=== PATIENT | male | born 1965 | race Caucasian/White ===

== ENCOUNTER 2019-08-04 14:53 | Outpatient (CLI) | payer OTHER, SELFPAY ==
--- NOTE | ~2019-08-04 | US_ITS ---
EXAMINATION: US carotid duplex BI DATE: 08/04/2019 15:33 INDICATION: Dizziness. Giddiness. TECHNIQUE: Grayscale, color Doppler, and pulsed Doppler images of the cervical carotid arteries were obtained. The degree of vessel stenosis is placed in one of the following categories: normal, <50%, 5 0-69%, >=70% but less than near-occlusion, near-occlusion, or total occlusion. Note that percent sten osis relative to normal distal artery lumen diameter is indirectly measured from velocity measurement s as described by Bernardo, et al. Radiology 2003; 229:340-346. COMPARISON: None. FINDINGS: RIGHT: The right common carotid artery (CCA) peak systolic velocity (PSV) is 101.6 cm/s. The right internal carotid artery (ICA) PSV is 59.9 cm/s. The right ICA end-diastolic velocity (EDV) is 16.8 cm/s. The r ight ICA/CCA PSV ratio is 0.6. Grayscale and color Doppler images yield an estimate of 0% diameter re duction from plaque in the ICA. The external carotid artery (ECA) PSV is 65.1 cm/s. There is antegrad e flow in the right vertebral artery. LEFT: The left CCA PSV is 106.9 cm/s. The left ICA PSV is 55.2 cm/s. The left ICA EDV is 24.5 cm/s. The lef t ICA/CCA PSV ratio is 0.5. The technologist noted that it was difficult to scan the patient due to b delmar habitus. The provided images reveal discontinuous color flow signal, low velocity and filling of the spectral window at the left internal carotid artery, which may be indications of possible high-gr don stenosis. Further evaluation with CT angiography of the carotid arteries is recommended. The ECA PSV is 52.9 cm/s. There is antegrade flow in the left vertebral artery. IMPRESSION: 1. No significant stenosis in the right internal carotid artery. 2. Cannot exclude critical stenosis in the left internal carotid artery; examination is limited in pa rt due to body habitus. Discontinuous color flow signal, low velocities and prominent spectral broade reggie at the left internal carotid artery are of concern for possible high-grade stenosis. CT angiogra phy of the carotid arteries is recommended for further evaluation. Reviewed, dictated and finalized at [facility]. Reviewed, dictated and finalized at location B. O SOUNDING BOARD MATCHER IMPRESSION: 1. No significant stenosis in the right internal carotid artery. 2. Cannot exclude critical stenosis in the left internal carotid artery; examin ation is limited in part due to body habitus. Discontinuous color flow signal, low velocities and prominent spectral broadening at the left internal carotid a rtery are of concern for possible high-grade stenosis. CT angiography of the ca rotid arteries is recommended for further evaluation.
== END 2019-08-04 14:54 | disposition home or self-care (01) ==
LOC: ANHIMG 14:58
PROVIDERS: Visit Provider Physician Assistant
DX: R42 Dizziness and giddiness (principal)
CPT/HCPCS: 93880

== ENCOUNTER → 2019-08-24 14:26 | Outpatient (CLI) | payer OTHER, SELFPAY ==
--- NOTE | ~2019-08-24 | MR_ITS ---
EXAMINATION: MR shoulder LT wo con DATE: 08/24/2019 15:18 INDICATION: Left shoulder tendinitis presenting with pain, weakness and limited range of motion TECHNIQUE: Magnetic resonance imaging (MRI) of the left shoulder was performed without intravenous co ntrast. Sequences included axial PD-weighted FS FSE, coronal oblique PD-weighted FS FSE, coronal obli que T2-weighted FS FSE, sagittal PD-weighted FS FSE, and sagittal T1-weighted SE. COMPARISON: Left shoulder radiographs dated 02/16/2019 FINDINGS: There is poor signal along the cephalad aspect of the shoulder likely related to patient body habitus and coil positioning. Coracoacromial arch: The acromion undersurface is curved in morphology (type II). The coracoacromial ligament is normal. M inimal acromioclavicular osteoarthritis. Rotator cuff: Mild supraspinatus and infraspinatus tendinopathy without discrete tear. The subscapularis and teres minor tendons are normal. There is increase intermediate signal intensity soft tissue replacing the n ormal fat signal at the rotator cuff interval which can be a finding of adhesive capsulitis although there is no evident thickening of the inferior capsule which is a second typical findings of adhesive capsulitis. Normal rotator cuff muscle bulk and signal. Biceps tendon, glenoid labrum and glenohumeral cartilage: Long head of the biceps tendon is normal. Glenoid labrum is normal. Glenohumeral cartilage is normal. Fluid: Small amount of fluid in the biceps tendon sheath which is disproportionate to the physiologic amount of fluid in the glenohumeral joint space consistent with mild bicipital tenosynovitis.. No loose ost eochondral bodies. Small amount of fluid in the subacromial/subdeltoid bursa consistent with mild bur sitis. Bones: Normal marrow signal with no edema, fracture or pathologic marrow replacing process. IMPRESSION: 1. Mild supraspinatus and infraspinatus tendinopathy without discrete tear. 2. Mild bicipital tenosynovitis with normal-appearing tendon. 3. Mild subacromial/subdeltoid bursitis. 4. Increased soft tissue density replacing the normal fat at the rotator cuff interval which can be a finding of adhesive capsulitis which is a clinical diagnosis. There is however no appreciable thicke reggie of the inferior capsule which is a second typical findings of adhesive capsulitis. Alternatively this could represent partial tear of the biceps carrington sling. Correlate with physical exam and clini ted history. Reviewed, dictated and finalized at location A. UREMENT AGENT IMPRESSION: 1. Mild supraspinatus and infraspinatus tendinopathy without discrete tear. 2. Mild bicipital tenosynovitis with normal-appearing tendon. 3. Mild subacromial/subdeltoid bursitis. 4. Increased soft tissue density replacing the normal fat at the rotator cuff i nterval which can be a finding of adhesive capsulitis which is a clinical diagn osis. There is however no appreciable thickening of the inferior capsule which is a second typical findings of adhesive capsulitis. Alternatively this could r epresent partial tear of the biceps carrington sling. Correlate with physical exam and clinical history.
== END ==
PROVIDERS: PCP Family Medicine; Visit Provider Orthopaedic Surgery
DX: M75.82 Other shoulder lesions, left shoulder (principal); M77.9 Enthesopathy, unspecified; M75.22 Bicipital tendinitis, left shoulder; M75.52 Bursitis of left shoulder
CPT/HCPCS: 73221

== ENCOUNTER → 2019-09-04 10:39 | Outpatient (CLI) | payer OTHER, SELFPAY ==
--- NOTE | ~2019-09-04 | CT_ITS ---
EXAMINATION: CTA brain carotid DATE: 09/04/2019 11:39 INDICATION: Dizziness. Carotid artery stenosis. TECHNIQUE: Computed tomographic angiography (CTA) of the head was performed without and with 100 mL O mnipaque-350 intravenous contrast. CTA of the neck was performed with intravenous contrast. Automated exposure control and iterative reconstruction technique were employed. The dose-length product was 1 458.12 mGy-cm. Maximum intensity projection and volume rendered 3D-reconstructions were created by hugh ordonez technologist on a separate workstation. COMPARISON: Head CT 08/26/2013, carotid ultrasound 08/04/2019 FINDINGS: HEAD CTA: There is no intracranial hemorrhage, acute infarction, or abnormal intracranial mass lesion . The ventricles are normal in size. There is mild mucosal thickening in the paranasal sinuses. The m astoid air cells are normal. The orbits are normal. Left vertebral artery is dominant. There is no si gnificant stenosis of basilar artery or the posterior cerebral arteries. There is no significant sten osis of the intracranial internal carotid arteries or anterior or middle cerebral arteries. Anterior communicating artery is normal. The posterior communicating arteries are normal. No aneurysm. NECK CTA: There are no pathologically enlarged lymph nodes. There is no significant stenosis of the v ertebral arteries. There is no visible plaque in the proximal internal carotid arteries. There is 0% stenosis of the proximal right internal carotid artery relative to normal distal artery lumen diamet er (NASCET criteria). There is 0% stenosis of the proximal left internal carotid artery relative to n ormal distal artery lumen diameter. The spine is unremarkable. IMPRESSION: 1. Normal brain. No aneurysm or significant intracranial arterial stenosis. 2. 0% stenosis of the proximal internal carotid arteries relative to normal distal artery lumen diame ters (NASCET criteria). Reviewed, dictated and finalized at location A. OWNED SALES CONSULTANT IMPRESSION: 1. Normal brain. No aneurysm or significant intracranial arterial stenosis. 2. 0% stenosis of the proximal internal carotid arteries relative to normal dis little artery lumen diameters (NASCET criteria).
[2019-09-04 10:56] LABS: Estimated Glomerular Filt Rate > 60
== END ==
PROVIDERS: PCP Physician Assistant; Visit Provider Physician Assistant
DX: I65.29 Occlusion and stenosis of unspecified carotid artery (principal)
CPT/HCPCS: 36415; 70496; 70498; Q9967

== ENCOUNTER 2019-09-10 07:38 | Outpatient (CLI) | payer OTHER, SELFPAY ==
--- NOTE | 2019-09-10 | EST_ITS ---
Patient Info Name: Adam Andino Age: 54 years : 1965 Gender: Male Ht: 70 in Wt: 305 lbs BSA: 2.68 m2 HR: 79 bpm BP: 133 Heart Rhythm: Sinus Rhythm Exam Date: 09/10/2019 9:00 AM Exam Location: [facility] Stress Patient Status: Outpatient Admit Date: 09/10/2019 Staff Ordering Physician: RicardoJanine Attending Provider: RicardoJanine Exercise Technologist: Zelda Blackwell RDCS Nurse: Enid Mar, ANP, ACNP-BC Exam Type: CA stress test treadmill Study Info Indications R07.89 - Other chest pain A treadmill exercise stress test was performed. Summary 1. No chest discomfort with stress test. 2. Decreased exercise tolerance for age. 3. Negative treadmill stress test for ischemia. Protocol: Wes Stress ECG Details Stage: REST Duration (min): 2 min : 21 sec Speed (mph): 0.0 Grade (%): 0 HR (bpm): 79 SBP (mmHg): 133 DBP (mmHg): 83 METS: --- Stage: REST Duration (min): 20 min : 4 sec Speed (mph): 0.0 Grade (%): 0 HR (bpm): 89 SBP (mmHg): 130 DBP (mmHg): 84 METS: --- Stage: STAGE 1 Duration (min): 1 min : 0 sec Speed (mph): 1.7 Grade (%): 10 HR (bpm): 108 SBP (mmHg): 130 DBP (mmHg): 84 METS: --- Stage: STAGE 1 Duration (min): 2 min : 0 sec Speed (mph): 1.7 Grade (%): 10 HR (bpm): 120 SBP (mmHg): 130 DBP (mmHg): 84 METS: --- Stage: STAGE 1 Duration (min): 3 min : 0 sec Speed (mph): 1.7 Grade (%): 10 HR (bpm): 124 SBP (mmHg): 172 DBP (mmHg): 80 METS: --- Stage: STAGE 2 Duration (min): 1 min : 0 sec Speed (mph): 2.5 Grade (%): 12 HR (bpm): 135 SBP (mmHg): 172 DBP (mmHg): 80 METS: --- Stage: STAGE 2 Duration (min): 2 min : 0 sec Speed (mph): 2.5 Grade (%): 12 HR (bpm): 144 SBP (mmHg): 142 DBP (mmHg): 87 METS: --- Stage: STAGE 2 Duration (min): 2 min : 34 sec Speed (mph): 2.5 Grade (%): 12 HR (bpm): 150 SBP (mmHg): 142 DBP (mmHg): 87 METS: --- Stage: RECOVERY Duration (min): 0 min : 25 sec Speed (mph): 0.0 Grade (%): 0 HR (bpm): 150 SBP (mmHg): 142 DBP (mmHg): 87 METS: --- Stage: RECOVERY Duration (min): 1 min : 25 sec Speed (mph): 0.0 Grade (%): 0 HR (bpm): 128 SBP (mmHg): 142 DBP (mmHg): 87 METS: --- Stage: RECOVERY Duration (min): 2 min : 25 sec Speed (mph): 0.0 Grade (%): 0 HR (bpm): 113 SBP (mmHg): 142 DBP (mmHg): 87 METS: --- Stage: RECOVERY Duration (min): 3 min : 25 sec Speed (mph): 0.0 Grade (%): 0 HR (bpm): 109 SBP (mmHg): 161 DBP (mmHg): 60 METS: --- Stage: RECOVERY Duration (min): 4 min : 25 sec Speed (mph): 0.0 Grade (%): 0 HR (bpm): 103 SBP (mmHg): 161 DBP (mmHg): 60 METS: ---
--- NOTE | 2019-09-15 11:08 | WPDHOLTEREM ---
Holter/Event Monitor Holter/Event Monitor Date of procedure: 09/10/19 Procedure Type: 48 hour holter monitor Indications: Chest pain on exertion Conclusion: 1. 48 hour holter monitor on 09/10/19. 2. Underlying rhythm is sinus rhythm. HR range 57-120 bpm; average HR 84 bpm. 3. No premature supraventricular complexes. No supraventricular tachycardia. 4. There are 4 premature ventricular complexes. No ventricular tachycardia. 5. No sinoatrial or atrioventricular blocks. No significant pauses greater than 2 seconds. 6. Patient reports symptoms of dizziness and chest pain which demonstrate sinus rhythm, HR range 82-109 bpm.
== END 2019-09-10 07:39 | disposition home or self-care (01) ==
PROVIDERS: PCP Physician Assistant; Visit Provider Physician Assistant
DX: R07.89 Other chest pain (principal)
CPT/HCPCS: 93017; 93225; 93226

== ENCOUNTER 2019-12-17 09:16 | Outpatient (CLI) | payer OTHER, SELFPAY ==
[2019-12-17 09:50] LABS: Blood Urea Nitrogen 7 mg/dL (9-20); Calcium 9.2 mg/dL (8.4-10.2); Carbon Dioxide 29 mmol/L (22-30); Chloride 98 mmol/L (98-107); Estimated Glomerular Filt Rate > 60; Glucose 111 mg/dL (75-110); Potassium 4.1 mmol/L (3.4-5.0); Sodium 134 mmol/L (137-145)
== END 2019-12-17 09:17 | disposition home or self-care (01) ==
LOC: ANHSURGERY 09:18
PROVIDERS: Anesthesiology; PCP Physician Assistant; Visit Provider Orthopaedic Surgery
DX: Z51.81 Encounter for therapeutic drug level monitoring (principal)
CPT/HCPCS: 36415; 80048

== ENCOUNTER 2019-12-23 00:17 | Outpatient (CLI) | payer OTHER, SELFPAY ==
[2019-12-23 17:34] LABS: SARS-CoV-2 RNA PCR Negative
== END 2019-12-23 00:18 | disposition home or self-care (01) ==
LOC: ANHCOVIDDT 00:18
PROVIDERS: PCP Physician Assistant; Visit Provider Orthopaedic Surgery
DX: Z01.812 Encounter for preprocedural laboratory examination (principal); Z11.59 Encounter for screening for other viral diseases
CPT/HCPCS: 87635; C9803; U0003

== ENCOUNTER 2019-12-25 00:45 | Day surgery (SDC) | payer OTHER, SELFPAY ==
[2019-12-16 09:21] VITALS: BMI 43.7
[2019-12-25] VITALS (7 sets, daily range): BP systolic 114–153; BP diastolic 53–93; PULSE 75–88; RESP 12–20; TEMP 36.9–37.7; O2SAT 94–100
--- NOTE | 2019-12-25 07:38 | WPDANESEPPF ---
Anes - Initial Pre Proc Eval Procedure: Operation Date: 12/25/19 11:00 Proposed Procedures p Left Carpal Tunnel Release, Left Cubital Tunnel Decompression - Keaton Blandon MD Date/Time: 12/25/19 07:38 Surgeon: Keaton Blandon MD Pre Op Diagnosis: left carpal and cubital tunnel syndrome Patient Data Age: 54 Gender: M Height: 1.78 m Weight: 138.35 kg Allergies Allergy/AdvReac Type Severity Reaction Status Date / Time peanut Allergy Unknown Vomiting Verified 12/16/19 09:18 Home Medications Medication Instructions Recorded Confirmed Type carvedilol 12.5 mg tablet 12.5 mg PO Q12H 06/18/19 12/16/19 History fluoxetine 20 mg capsule 20 mg PO DAILY 06/18/19 12/16/19 History lisinopril 20 mg tablet 20 mg PO DAILY 06/30/19 12/16/19 History meloxicam 15 mg tablet 15 mg PO DAILY 06/30/19 12/16/19 History multivitamin 1 cap PO DAILY 06/30/19 12/16/19 History omeprazole 40 mg capsule,delayed 40 mg PO DAILY 06/30/19 12/16/19 History release terazosin 5 mg capsule 5 mg PO DAILY 06/30/19 12/16/19 History trazodone 100 mg tablet 100 mg PO HS 06/30/19 12/16/19 History zolpidem 10 mg tablet 10 mg PO HS 06/30/19 12/16/19 History hydrochlorothiazide 25 mg tablet 25 mg PO DAILY 08/17/19 12/16/19 History Vitamin B-1 1 tablet PO DAILY 12/16/19 12/16/19 History Vitamin D3 1 tablet PO DAILY 12/16/19 12/16/19 History multivitamin 1 tablet PO DAILY 12/16/19 12/16/19 History Patient hx anesthesia problems: none Family hx anesthesia problems: none PMFSH Past Medical History Medical History (Updated 12/25/19 @ 07:39 by Fernando Demarco MD) Anxiety Arthritis Back pain Carpal tunnel syndrome of left wrist Essential hypertension GERD (gastroesophageal reflux disease) Insomnia Left shoulder tendonitis Morbid obesity with BMI of 40.0-44.9, adult Obesity GIRMA (obstructive sleep apnea) Ulnar neuropathy at elbow Surgical History Surgical History History of appendectomy (~2008) Social History Social History Smoking status: Never smoker Alcohol intake: current Anes - Eval Final PreProcedure Day of Procedure 12/25/19 07:38 Patient weight: morbidly obese Heart: regular rate and rhythm Lungs: clear to auscultation and normal air movement Airway: Mallampati scale class II Neurological: alert and oriented Last oral intake: >/= 8 hours ASA classification: III Emergent: no Anesthetic plan: proceed Anesthesia type and monitoring: general LMA and ETT Informed Consent: The patient's anesthetic plan and its attendant risks and benefits were discussed with the patient/family/POA. Questions were solicited and answers provided to the satisfaction of the patient/family/POA.
[2019-12-25] MEDS: LACTATED RINGERS 1,000 ML 30 ML IV CONT ×2 (09:50→13:24)
--- NOTE | 2019-12-25 11:04 | WPDHPUPDATE1 ---
History and Physical Update Update Date/Time: 12/25/19 11:04 History and Physical has been reviewed, including an updated exam of the patient. There are NO changes in the patient's condition. Risks, benefits, and alternatives have been discussed and questions answered. Patient agrees to proceed with procedure.
[2019-12-25] MEDS: ceFAZolin 3 GM/D5W 100 ML 100 ML IVPB (11:09)
[2019-12-25] MEDS: BUPIVACAINE/EPINEPHRINE 0.5% 10 ML VIAL INFILTRATE (11:26)
[2019-12-25] MEDS: KETOROLAC 30 MG/ML VIAL (*BKC) IV PUSH (12:56)
--- NOTE | 2019-12-26 11:01 | PM.PROC ---
Procedure Note - Detailed Date of procedure: 12/25/19 Pre-op diagnosis: left carpal and cubital tunnel syndrome Post-op diagnosis: same Procedure performed: 1. Carpal Tunnel Release 2. Ulnar nerve submuscular transposition at the elbow. Description of procedure: The nerve was inflamed and compressed at the cubital tunnel. After decompression it appeared quite unstable. It tended to move over and on top of the medial epicondyle. The nerve was also under considerable tension with deep flexion. Submuscular transposition was elected. Carpal tunnel release was performed in a routine fashion. Anesthesia: GLMA and MAC Surgeon: Keaton Blandon MD Estimated blood loss (mL): 5 Tourniquet time (min): 60 Drains: No Pathology: none sent Complications: None Condition: stable Findings: Operative details. After sedation was administer, the hand was prepped and draped in the usual sterile fashion. The proposed incision was marked using typical anatomic landmarks. 4ML 0.5% Marcaine with epinephrine was injected along the incision line and at the distal forearm. The limb was exsanguinated and the tourniquet inflated to 250 millimeters of mercury. A longitudinal incision was taken sharply. Dissection was brought down to the transverse carpal ligament. Under direct vision the ligament was incised sharply. The proximal release was carried out with dissection scissors. The contents of the carpal canal were protected with a [place] elevator. The transverse carpal ligament was confirmed to be widely patent. Attention was turned to the elbow. A longitudinal incision was created posterior to the medial epicondyle. Careful dissection was brought down to the ulnar nerve. It was identified proximally and dissected to the cubital tunnel retinaculum. Careful dissection released the cubital tunnel retinaculum. The dissection was carried out to the flexor carpi the ulnaris. The 1st motor branch was carefully identified and protected. Attention was turned proximally in the nerve was released proximal to the intermuscular septum. The arm was flexed and the nerve was assessed. At this point the nerve was found to be unstable. It was elected to proceed with a submuscular transposition. The flexor-pronator mass was elevated from the medial epicondyles. The deep capsule and ligament were carefully protected. After adequate release was confirmed proximally and distally, the nerve was carefully moved onto the muscle. The intermuscular septum was carefully released and cauterized prior to moving the nerve. The course of the nerve was very nice without evidence of compression or instability. The muscle was then repaired using multiple interrupted mattress 0 Vicryl suture. The tourniquet was released to assure that there was no significant bleeding. Meticulous hemostasis was maintained. The subcutaneous tissues were closed with 2-0 Vicryl suture. The skin was closed with interrupted 3-0 Monocryl suture followed by running 4-0 Monocryl suture and Steri-Strips. Sterile dressing was applied with a soft splint at the wrist and a hard splint at the elbow. The patient was extubated and brought to the recovery room in stable condition.
== END 2019-12-25 15:40 | disposition home or self-care (01) ==
PROVIDERS: PCP Physician Assistant; Visit Provider Orthopaedic Surgery
PROC: (CPT 64721; principal; 2019-12-25 11:00)
DX: G56.02 Carpal tunnel syndrome, left upper limb (principal); G56.22 Lesion of ulnar nerve, left upper limb; I10 Essential (primary) hypertension; G47.33 Obstructive sleep apnea (adult) (pediatric); F41.9 Anxiety disorder, unspecified; G47.00 Insomnia, unspecified; E66.01 Morbid (severe) obesity due to excess calories; Z68.41 Body mass index [BMI] 40.0-44.9, adult
CPT/HCPCS: 64721; 64718; A4565; A9270; J0131; J0690; J1100; J1170; J1885; J2250; J2370; J2405; J2704; J3010; J7120

== ENCOUNTER → 2020-01-27 13:11 | Outpatient (CLI) | payer OTHER, SELFPAY ==
--- NOTE | ~2020-01-27 | XR_ITS ---
EXAMINATION: XR lumbar spine 2-3V DATE: 01/27/2020 13:52 INDICATION: Chronic low back pain. TECHNIQUE: 3 views of lumbar spine were obtained. COMPARISON: CT abdomen and pelvis 03/15/2010 FINDINGS: Bone alignment is normal. Vertebral body heights and intervertebral disc heights are normal . There are small endplate osteophytes at multiple levels. The facet joints are unremarkable. IMPRESSION: 1. Mild lumbar spondylosis. Reviewed, dictated and finalized at location A. IMPRESSION: 1. Mild lumbar spondylosis.
== END ==
PROVIDERS: PCP Physician Assistant; Visit Provider Physician Assistant
DX: M47.896 Other spondylosis, lumbar region (principal)
CPT/HCPCS: 72100

== ENCOUNTER 2020-03-08 09:00 | Outpatient (RCR) | payer OTHER, SELFPAY ==
--- NOTE | 2020-02-16 10:43 | PTOPEVAL ---
PHYSICAL THERAPY EVALUATION AND PLAN OF CARE 02-16-2020 Thank you for referring Adam Andino to [facility].? He is scheduled to be seen for Physical Therapy? 2 x/week for 3 weeks, for the diagnosis of low back pain. Please review, sign, date and return this plan of care TELMA. I agree with and certify that the following plan of care is medically necessary. 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 Respiratory History Hx Sleep Apnea Yes: not using CPAP right now, work with insurance on new one Gastrointestinal History Hx Gastroesophageal Reflux Disease Yes Hx Other Gastrointestinal Disorders Yes: CHRONIC VOMITING EVERY MORNING;to see gastrologist Genitourinary History Hx Other Genitourinary Disorders Yes: URINARY FREQUENCY Musculoskeletal History Hx Arthritis Yes: of spine Hx Back Pain Yes: chronic, sometimes drag L leg when walking Hx Other Musculoskeletal Disorders Yes: LT CARPAL & CUBITAL TUNNEL SYNDROME; december 24 Hematological History Hx Hematological Disorders No Significant History Endocrine History Hx Endocrine Disorders No Significant History HEENT History Hx HEENT Disorders No Significant History Integumentary History Hx Skin Disorders No Significant History Reproductive History Hx Reproductive Disorders No Significant History Psychosocial History Hx Anxiety Yes: control with meds Hx Depression Yes: control with meds Anesthesia History Hx Anesthesia Reactions No Significant History Other History Hx Recent Acute Infection Yes: to see journalism instructor for L big toe infection Hx Other Medical Conditions Yes: obesity, recent gain 30# in 6 wks; alcoholism Hx Other Surgeries Yes: appendectomy Evaluation Information Problem Diagnosis dizziness, LBP Onset LBP increase Cause November 2019 Additional Evaluation Detail is currently being treated by OT at this facility for UE Subjective Information pt has 2 diagnosis' from 2 Query Text:As Reported By Patient/ different dr's; Family
--- NOTE | 2020-03-08 09:49 | PTOPEVAL ---
PHYSICAL THERAPY RE-EVALAUTION AND HOLD PT services 03-08-2020 Mr. Andino has received 7 PT sessions, from February 15 to today, for the diagnosis of back pain. See Clinical Summary below; there have been minimal improvements with his back. He reports he wants to stop treatment on his back and start therapy for gait imbalance and dizziness diagnosis from neurology. PT will be placed on HOLD for his back, and treatment will be initiated for dizziness and gait imbalance. Thank you for referring Adam Andino to [facility][Note 3].? Please review, sign, date and return this plan of care [facility]. I agree with and certify that the following plan of care is medically necessary. Referring Physician Date Attending Provider: KATHY Arevalo *PT Outpatient Re-Evaluation Start: 02/16/20 09:38 Document 03/08/20 09:01 TIM (Rec: 03/08/20 09:49 TIM [id number]) Subjective Information Alireza reports: back is not as Query Text:As Reported By Patient/ painful, as often as it was; Family still gives me trouble; want to work on dizziness and balance; to have MRI of back in 3 days; have been taking BP at home, about 148/90, today: at rest: BP 146/84; Oswestry self assessment functional score of 42% limitation in activity. to see acetylene gas compressor due to L arm and leg swollen; to see neurologist in mid Mar; saw his general physician who told him to start looking into disability due to all his problems. to see dr who did elbow surgery tomorrow and wants him to check his L shoulder due to continued pain with it; he continues to receive OT treatment for L elbow; Pain Assessment Timing of Pain Assessment Timing of Pain Assessment Assessment Pain Scale Pain Scale Used Numeric (1 - 10) Self Report Pain Assessment Bilateral Back Reported Pain Level 3 Pain Description Sharp Pain Frequency Chronic Other Pain Description R and L low back and tops of hips; Lowest Pain Intensity 0 Greatest Pain Intensity 7 Pain Aggravating Factors Walking,Weight Bearing/ Standing Other Pain Aggravating Factors report tolerances:walk 200' 10 -20 min; stand 3 minutes in
--- NOTE | 2020-05-13 08:41 | PCPTNOTE ---
PHYSICAL THERAPY DISCHARGE 05-13-2020 Attending Provider: KATHY Arevalo Patient:Adam Andino Date of :1965 Adam has not returned for any further treatments since the reevaluation on 03/08/2020, therefore he will be discharged at this time. Refer to that reevaluation for his status at the last session. Thank you for referring Mr. Andino to [facility]. Please review, sign, date and return this discharge summary TELMA. I have been updated about the patient's current status and I agree with discharge from the above service at this time. Referring Physician Date
== END 2020-05-11 09:08 | disposition home or self-care (01) ==
LOC: ANHPT 09:00
PROVIDERS: PCP Physician Assistant
DX: M54.5 Low back pain (principal); R42 Dizziness and giddiness
CPT/HCPCS: 97014; 97110; 97140; 97161; G0283

== ENCOUNTER → 2020-03-22 09:58 | Outpatient (CLI) | payer OTHER, SELFPAY ==
--- NOTE | ~2020-03-22 | MR_ITS ---
EXAMINATION: MR lumbar spine wo con EXAM DATE: 03/22/2020 10:35 INDICATION: Low back pain and bilateral leg pain. TECHNIQUE: Multi-sequential, multiplanar MR images of the lumbar spine were obtained without contrast . Sagittal T1, T2, T2 fat saturation images. Axial T2 weighted images. Correlation was made with l umbar x-ray dated 01/27/2020. FINDINGS: The vertebral bodies are aligned in the AP dimension. Vertebral body and disc heights are w ell-maintained. The conus medullaris terminates at the L1/2 level and has normal signal intensity and morphology. There are no suspicious marrow signal abnormalities. Paraspinal soft tissue is unremark able. Level by level evaluation: T12-L1: Disc does not extend beyond the endplate margin. Facet arthropathy: None. Neural foraminal stenosis: No stenosis. Central canal stenosis: No stenosis. L1-L2: Disc does not extend beyond the endplate margin. Facet arthropathy: None. Neural foraminal stenosis: No stenosis. Central canal stenosis: No stenosis. L2-L3: There is a minimal diffuse disc bulge. Facet arthropathy: Mild. Neural foraminal stenosis: No stenosis. Central canal stenosis: No stenosis. L3-L4: There is a minimal diffuse disc bulge. Facet arthropathy: Mild. Neural foraminal stenosis: No stenosis. Central canal stenosis: No stenosis. L4-L5: There is a mild diffuse disc bulge. Facet arthropathy: Mild. Neural foraminal stenosis: Mild bilateral. Central canal stenosis: No stenosis. L5-S1: There is a mild diffuse disc bulge. Facet arthropathy: Mild. Neural foraminal stenosis: Minimal bilateral. Central canal stenosis: No stenosis. IMPRESSION: 1. Mild lumbar spondylosis. Reviewed, dictated and finalized at location B. IMPRESSION: 1. Mild lumbar spondylosis.
== END ==
PROVIDERS: Visit Provider Nurse Practitioner Adult Health
DX: M47.26 Other spondylosis with radiculopathy, lumbar region (principal)
CPT/HCPCS: 72148

== ENCOUNTER 2020-04-06 08:00 | Outpatient (RCR) | payer OTHER, SELFPAY ==
--- NOTE | 2020-03-18 10:16 | PTOPEVAL ---
PHYSICAL THERAPY EVALUATION AND PLAN OF CARE 03-18-2020 The PT evaluation was completed for the diagnosis of dizziness, gait imbalance and orthostatic hypotension. Thank you for referring Adam Andino to [facility].? He is scheduled to be seen for therapy? 1x/week for 6 weeks. Please review, sign, date and return this plan of care TELMA. I agree with and certify that the following plan of care is medically necessary. Referring Physician Date Attending Provider: Lorna Cast NP *PT Outpatient Evaluation Start: 03/18/20 09:13 Document 03/18/20 09:05 TIM (Rec: 03/18/20 10:16 TIM [id number]) Outpatient Past Medical History Past Medical History Source of Past Medical History Patient Neurological History Hx Neurological Disorders No Significant History Cardiovascular History Hx Heart Murmur Yes Hx Hypertension Yes: meds control Hx Other Cardiac Disorders Yes: saw drum drier last wk- to get heart monitor,?decr HR Respiratory History Hx Sleep Apnea Yes: not using CPAP right now, work with insurance on new one Gastrointestinal History Hx Gastroesophageal Reflux Disease Yes Hx Other Gastrointestinal Disorders Yes: dry heaves/vomit every morning Genitourinary History Hx Other Genitourinary Disorders Yes: URINARY FREQUENCY Musculoskeletal History Hx Arthritis Yes: of spine Hx Back Pain Yes: chronic, sometimes drag L leg when walking Hx Other Musculoskeletal Disorders Yes: LT CARPAL & CUBITAL TUNNEL SYNDROME; december 24 Hematological History Hx Hematological Disorders No Significant History Endocrine History Hx Endocrine Disorders No Significant History HEENT History Hx HEENT Disorders No Significant History Integumentary History Hx Skin Disorders No Significant History Reproductive History Hx Reproductive Disorders No Significant History Psychosocial History Hx Anxiety Yes: control with meds Hx Depression Yes: control with meds Anesthesia History Hx Anesthesia Reactions No Significant History Other History Hx Recent Acute Infection Yes: 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
--- NOTE | 2020-04-13 12:43 | PCPTNOTE ---
Patient called & cancelled scheduled appointment this date due to having another appointment.
--- NOTE | 2020-04-27 09:04 | PCPTNOTE ---
pt did not show for today's reevaluation appointment; I called him, he stated he forgot about the appointment, not feeling well, had a spinal injection in his back yesterday and did not sleep well last night. Also still having dizzy spells when he stands up; sees the dr next week and will wait and if he is to continue therapy or not. He will call for appt if needed. He will require a reevaluation if he returns for additional therapy.
--- NOTE | 2020-05-13 08:35 | PCPTNOTE ---
PHYSICAL THERAPY DISCHARGE 05-13-2020 Attending Provider: Lorna Davison NP Patient:Adam Andino Date of :1965 Mr. Andino has not returned for any further treatments since 04/06/2020, therefore he will be discharged at this time. Adam has received 3 PT sessions for the diagnosis of gait imbalance, dizziness, orthostatic hypotension. He did not show for one and called/canceled one appointment. The goals were not assessed. Thank you for referring Adam to [facility]. Please review, sign, date and return this discharge summary TELMA. I have been updated about the patient's current status and I agree with discharge from the above service at this time. Referring Physician Date
== END 2020-05-13 09:34 | disposition home or self-care (01) ==
LOC: ANHPT 08:00
PROVIDERS: PCP Physician Assistant
DX: R42 Dizziness and giddiness (principal)
CPT/HCPCS: 97110; 97162

== ENCOUNTER 2020-04-06 09:30 | Outpatient (RCR) | payer OTHER, SELFPAY ==
--- NOTE | 2020-02-04 10:18 | OTOPEVAL ---
OCCUPATIONAL THERAPY EVALUATION 02/04/2020 Thank you for referring Adam Andino to [facility]. Patient would benefit from skilled OT 2x/week for 4 weeks. Please review, sign, date and return this plan of care TELMA. I agree with and certify that the following plan of care is medically necessary. 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 Respiratory History Hx Sleep Apnea Yes Gastrointestinal History Hx Gastroesophageal Reflux Disease Yes Hx Other Gastrointestinal Disorders Yes: CHRONIC VOMITING EVERY MORNING Genitourinary History Hx Other Genitourinary Disorders Yes: URINARY FREQUENCY Musculoskeletal History Hx Arthritis Yes Hx Back Pain Yes Hx Other Musculoskeletal Disorders Yes: LT CARPAL & CUBITAL TUNNEL SYNDROME Hematological History Hx Hematological Disorders No Significant History Endocrine History Hx Endocrine Disorders No Significant History HEENT History Hx HEENT Disorders No Significant History Integumentary History Hx Skin Disorders No Significant History Reproductive History Hx Reproductive Disorders No Significant History Psychosocial History Hx Anxiety Yes Anesthesia History Hx Anesthesia Reactions No Significant History Evaluation Information Problem Diagnosis cubital tunnel, carpal tunnel Onset 12/25/2019 Additional Evaluation Detail Pt presents to OT with Cubital tunnel release and carpal tunnel release on 12/26/2019. Has had symptoms of cubital tunnel/carpal tunnel for past ten years prior to surgical intervention. Subjective Information Pt reports has difficulties Query Text:As Reported By Patient/ with buttoning shirts, Family numbness in hand which has improved to tingling. 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
--- NOTE | 2020-02-18 08:17 | PCOTNOTE ---
Pt scheduled for OT treatment this am. Did not attend appointment or call to cancel appointment.
--- NOTE | 2020-03-03 10:07 | OTOPEVAL ---
OCCUPATIONAL THERAPY RE-EVALUATION REPORT carol you for referring Adam Andino to [facility].?As described below, patient is progressing with functional ROM and strength. Continued skilled OT indicated to progress ROM and strengthening. The patient is scheduled to be seen for therapy?2x/week for 4 weeks. Please review, sign, date and return this plan of care TELMA. I agree with and certify that the following plan of care is medically necessary. Referring Physician Date Referring Provider: Keaton Blandon MD Re-Evaluation Information Problem Diagnosis cubital tunnel, carpal tunnel Onset 12/25/2019 Subjective Information Patient reports overall less Query Text:As Reported By Patient/ pain and improved strength Family since beginning therapy. 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 Improved abilities also noted with being able to use a knife and fork and opening jars. He does state that he continues to be guarded with using the left arm and he does continue to feel weak. Pain Assessment Timing of Pain Assessment Timing of Pain Assessment Re-assessment Pain Scale Pain Scale Used Numeric (1 - 10) Self Report Pain Assessment Left Elbow(s) Reported Pain Level 1 Pain Description Dull Pain Frequency Intermittent Lowest Pain Intensity 1 Greatest Pain Intensity 7 Other Pain Aggravating Factors Overuse Pain Relief Interventions Used By Inactivity/Rest Patient Pain Score Pain Score 1: Self Report Upper Extremity Range of Motion Elbow/Forearm Range of Motion Right Elbow Flexion - Active 130 Elbow Extension - Active 0 Left Elbow Flexion - Active 120 Elbow Flexion - Passive 130 Elbow Extension - Active -20 Elbow Extension - Passive 0 Forearm Supination - Active 70 Forearm Supination - Passive 80 Forearm Pronation - Active 90 Elbow/Forearm Range of Motion Edema,Pain,Soft Tissue Limitations Restriction Elbow/Forearm Range of Motion Comments Active elbow flexion improved from 105* Active elbow extension improved from -25* Passive elbow extension improved from -15* Active forearm supination improved from 60* Wrist Range of Motion Right Wrist Flexion
--- NOTE | 2020-03-31 09:58 | PCOTNOTE ---
Patient called & cancelled OT appt this date due to having another appointment.
--- NOTE | 2020-04-06 10:06 | OTOPEVAL ---
OCCUPATIONAL THERAPY DISCHARGE NOTE 04/06/2020 Thank you for referring Adam Andino to [facility].? As described below, the patients AROM/PROM have either remained the same or decreased since the last re-evaluation. 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 The patient has questionable compliance with the home exercises, but is independent with all materials. It is recommended that he follows up with MD for further evaluation and treatment recommendations. Discharging today with goals not met. Please review, sign, date and return this D/C Note TELMA. I agree with and certify that the following plan of care is medically necessary. Referring Physician Date Admitting Provider: Attending Provider: Keaton Blandon MD Referring Provider: *OT Outpatient Re-Evaluation Evaluation Information Problem Diagnosis cubital tunnel, carpal tunnel Onset 12/25/2019 Additional Evaluation Detail Pt presents today for his second OT re-evaluation. He was only able to attend 4 treatment sessions since his last re-evaluation. Questionable compliance with HEP. He continues to guard the left UE and walk with the arm flexed with no arm swing. Subjective Information Patient reports that he feels Query Text:As Reported By Patient/ like his arm is the same or Family maybe a little bit worse . He reports that his numbness is returning. He states he has been doing his exercises, but stops when/if it hurts. He reports having shoulder pain which restricts functional use of the entire arm. He has multiple medical problems and is beginning to feel the stress of all of his appointments and keeping up with therapy also. Pain Assessment Timing of Pain Assessment Timing of Pain Assessment Re-assessment Pain Scale Pain Scale Used Numeric (1 - 10) Self Report Pain Assessment Left Wrist(s) Reported Pain Level 3 Pain Description Aching,With Movement Lowest Pain Intensity 0 Greatest Pain Intensity 5 Left Elbow(s) Reported Pain Level 0 Lowest Pain Intensity 0 Greatest Pain Intensity 5 Pain Score Pain Score 0,3: Self Report Upper Extremity Range of Motion Scapular/ Shoulder Range of Motion Left Shoulder Flexion - Active 120 Shoulder Abduction - Active 95 Elbow/Forearm Range of Motion
== END 2020-04-06 12:41 | disposition home or self-care (01) ==
LOC: ANHOT 09:30
PROVIDERS: PCP Physician Assistant; Visit Provider Orthopaedic Surgery
DX: Z48.89 Encounter for other specified surgical aftercare (principal)
CPT/HCPCS: 97014; 97035; 97110; 97140; 97165; G0283

== ENCOUNTER 2020-04-25 00:46 | Outpatient (CLI) | payer OTHER, SELFPAY ==
[2020-04-25 16:30] LABS: SARS-CoV-2 RNA PCR Negative
== END 2020-04-25 00:47 | disposition home or self-care (01) ==
LOC: ANHCOVIDDT 00:47
PROVIDERS: PCP Physician Assistant; Visit Provider Internal Medicine Critical Care Medicine
DX: Z01.812 Encounter for preprocedural laboratory examination (principal); Z20.828 Contact with and (suspected) exposure to other viral communicable diseases
CPT/HCPCS: 87635; C9803; U0003

== ENCOUNTER 2020-04-27 07:10 | Outpatient (CLI) | payer OTHER, SELFPAY ==
--- NOTE | 2020-05-30 14:35 | WPDSLEEPSTUD ---
Sleep Study Date of Study: 04/27/20 Ordering Provider: Janine CHAVEZ Interpreting Physician: Ligia Levin MD Sleep Study Type: Split Polysomnogram Height: 1.78 m Weight: 140.614 kg Body Mass Index: 44.4 Neck Circumference: 45 cm Aquilla: 6 Reason for Sleep Study Frequent loud snoring Sleep History Adam Andino is a 55 year-old man with a history of GIRMA, and his device stopped working. His sleep complaints include frequent loud snoring that is loud enough that others complain. He occasionally awakens from sleep feeling short of breath. He occasionally has trouble sleeping with a cold. He does not gasp for breath at night. He occasionally has breathing problems at night witnessed by others, occasionally sweats excessively at night and occasionally notices his heart pounding or beating irregularly at night. He does not fall asleep during the day, does not fall asleep involuntarily or while driving. He does not have loss of muscle tone with strong emotion. 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 He does not feel paralyzed on waking or falling asleep. He does not have vivid dreamlike scenes upon awakening or falling asleep. He has never for a to go to sleep. He occasionally has nightmares, occasionally remembers his dreams, occasionally has racing thoughts, feelings of sadness depression and anxiety. He occasionally has muscular tension. He does not notice parts of his body jerking at night, does not kick at night and does not have crawling or aching feelings in his legs at night. He occasionally has leg pain at night. He does not have morning jaw pain and does not grind his teeth during sleep. He frequently has bothered by pain during the day. He occasionally is awakened by pain at night, occasionally wakes up feeling stiff in the morning with sore achy muscles. He frequently wakes up with pain in the neck and spine. He has nightmares, depression and memory problems. He has problems with excessive alcohol. He takes zolpidem 5 mg at night and trazodone 100 mg at night. Normal bedtime is 8:30 p.m., takes a variable amount of time to fall asleep, typically wakes up 3 times at night for 30 minutes. While awake he goes to the bathroom. He wakes the morning at 6:00 a.m.. He does not take naps in the day. A short nap might be refreshing. He is usually drowsy in the morning for 2 hours or longer. He feels better in the morning compared to other times of day. Habits: Never smoked tobacco. Three caffeinated beverages a day. Six alcoholic beverages a day. No recreational drugs. FOR[facility]LY [facility] Past Medical History Medical History Anxiety Arthritis Back pain Carpal tunnel syndrome of left wrist Essential hypertension GERD (gastroesophageal reflux disease) Insomnia Left shoulder tendonitis Morbid obesity with BMI of 40.0-44.9, adult Obesity GIRMA (obstructive sleep apnea) Ulnar neuropathy at elbow Surgical History Surgical History History of appendectomy (~2008) History of elbow surgery (~12/25/19) Cubital Tunnel Decompression Family History Family History Mother Diabetes mellitus Family history of obesity Family history of elevated blood lipids Father Family history of cardiovascular disease Social History Social History Smoking status: Never smoker Alcohol intake: current Medications Home Medications Medication Instructions Recorded Confirmed Type carvedilol 12.5 mg tablet 12.5 mg PO Q12H 06/18/19 12/25/19 History fluoxetine 20 mg capsule 20 mg PO DAILY 06/18/19 12/25/19 History lisinopril 20 mg tablet 20 mg PO DAILY 06/30/19 12/25/19 History meloxicam 15 mg tablet 15 mg PO DAILY 06/30/19 12/25/19 History multivitamin 1 cap P
[2020-05-30 15:33] VITALS: BMI 44.4
== END 2020-04-27 07:11 | disposition home or self-care (01) ==
LOC: ANHCSM 07:11
PROVIDERS: PCP Physician Assistant; Visit Provider Physician Assistant
DX: G47.33 Obstructive sleep apnea (adult) (pediatric) (principal); Z68.41 Body mass index [BMI] 40.0-44.9, adult
CPT/HCPCS: 95811

== ENCOUNTER 2021-06-01 09:15 | Emergency (ER) | payer OTHER, MEDICAID, SELFPAY ==
[2021-06-01 09:34] VITALS: BP 137/78; PULSE 74; RESP 16; TEMP 37.3; O2SAT 98
--- NOTE | 2021-06-01 09:40 | ED.WOUNDLAC ---
HPI - Wound/Laceration General Chief Complaint: Wound/Laceration Stated Complaint: Cat Bite Time Seen by Provider: 06/01/21 09:40 Source: patient, RN notes reviewed and old records reviewed Mode of arrival: ambulatory Limitations: no limitations History of Present Illness HPI narrative: 56-year-old male presents to the [facility] with a cat bite to the dorsal aspect left hand and scratches to his bilateral hands and lower left arm that occurred yesterday. Patient reports trying to put his cat in a carrier when trying to bring the cat to the vet. Patient states that he just adopted this cat about 6 days ago and was taking him for his well Exam. States he adopted him for [employer] pets and he is up-to-date on vaccines. Patient not sure about his own Tdap. Area of redness with puncture wounds. Pus noted Related Data Home Medications Medication Instructions Recorded Confirmed carvedilol 12.5 mg tablet 12.5 mg PO Q12H 06/18/19 06/20/20 fluoxetine 20 mg capsule 20 mg PO DAILY 06/18/19 06/20/20 lisinopril 20 mg tablet 20 mg PO DAILY 06/30/19 06/01/21 meloxicam 15 mg tablet 15 mg PO DAILY 06/30/19 06/20/20 multivitamin 1 cap PO DAILY 06/30/19 06/20/20 omeprazole 40 mg capsule,delayed 40 mg PO DAILY 06/30/19 06/20/20 release terazosin 5 mg capsule 5 mg PO DAILY 06/30/19 06/20/20 trazodone 100 mg tablet 100 mg PO HS 06/30/19 06/01/21 zolpidem 10 mg tablet 10 mg PO HS 06/30/19 06/01/21 hydrochlorothiazide 25 mg tablet 25 mg PO DAILY 08/17/19 06/20/20 Vitamin B-1 1 tablet PO DAILY 12/16/19 06/20/20 Vitamin D3 1 tablet PO DAILY 12/16/19 06/20/20 multivitamin 1 tablet PO DAILY 12/16/19 06/20/20 aspirin 81 mg PO DAILY 06/01/21 06/01/21 Allergies Allergy/AdvReac Type Severity Reaction Status Date / Time peanut Allergy Unknown Vomiting Verified 06/01/21 10:02 Review of Systems Review of Systems: All systems reviewed & are unremarkable except as noted in HPI and below Constitutional: Constitutional: Reports no additional constitutional complaints, Denies chills and Denies fever(s) Eyes: Eyes: Reports no additional eye complaints, Denies change in vision and Denies photophobia ENT: Reports system reviewed and no additional complaints, except as documented Cardiovascular: Cardiovascular: Reports no additional cardiovascular complaints and Denies chest pain Respiratory: Respiratory: Reports no additional respiratory complaints, Denies cough and Denies dyspnea Gastrointestinal: Gastrointestinal: Reports no additional gastrointestinal complaints, Denies abdominal pain, Denies nausea and Denies vomiting Musculoskeletal: Musculoskeletal: Reports no additional musculoskeletal complaints Integumentary/Breasts: Skin/Breast: Reports as per HPI and Reports erythema (Dorsal aspect left hand) Neurologic: Reports system reviewed and no additional complaints, except as documented Psychiatric: Psychiatric: Reports no additional psychiatric complaints Allergic/Immunologic: Allergic/Immunologic: Reports no additional allergic/immunologic complaints PMFSH Past Medical History Medical History Anxiety Arthritis Back pain Carpal tunnel syndrome of left wrist Essential hypertension GERD (gastroesophageal reflux disease) Insomnia Left shoulder tendonitis Morbid obesity with BMI of 40.0-44.9, adult Obesity GIRMA (obstructive sleep apnea) Ulnar neuropathy at elbow Surgical History Surgical History History of appendectomy (~2008) History of elbow surgery (~12/25/19) Cubital Tunnel Decompression Family History Family History Mother Diabetes mellitus Family history of obesity Family history of elevated blood lipids Father Family history of cardiovascular disease Social History Social History Smoking status: Never smoker Alcohol intake: cu
[2021-06-01] MEDS: TETANUS,DIPHTHERIA,AC PERTUSSIS ADULT (0.5 ML) BOOSTRIX IM (10:35)
--- NOTE | 2021-06-07 17:13 | PC.NURSE ---
final result for aerobic cx, not operations section manager list, final pasteurella multocida, final anaerobic no anaerobes isolated, result given to nursery laborer and no change in care plan at this time.
== END 2021-06-01 10:48 | disposition home or self-care (01) ==
PROVIDERS: Emergency Provider Nurse Practitioner
DX: S61.452A Open bite of left hand, initial encounter (principal); I10 Essential (primary) hypertension; Z23 Encounter for immunization; W55.01XA Bitten by cat, initial encounter
CPT/HCPCS: 87070; 87075; 87077; 87185; 87205; 90471; 90715; 99213; G0463

== ENCOUNTER 2021-07-08 07:47 | Day surgery (SDC) | payer OTHER, SELFPAY ==
[2021-07-08] VITALS (9 sets, daily range): BP systolic 123–172; BP diastolic 77–111; PULSE 77–100; RESP 15–24; TEMP 35.8–37.3; O2SAT 96–100
--- NOTE | 2021-07-08 08:54 | ED.GENADULT ---
HPI - General Adult General Chief complaint: Unspecified Stated complaint: food stuck in throat Time Seen by Provider: 07/08/21 08:48 Source: patient and RN notes reviewed Mode of arrival: ambulatory Limitations: no limitations History of Present Illness HPI narrative: This is a 56 year old male who presents for evaluation of a food impaction. He has history of esophageal dilation in 2019. He reports around 7 pm last night he was eating roast beef sandwhich and he feels that it is stuck in his esophagus. When he drinks water it comes back up . He is also complaining of being anxious at this time. Related Data Home Medications Medication Instructions Recorded Confirmed carvedilol 12.5 mg tablet 12.5 mg PO Q12H 06/18/19 06/20/20 fluoxetine 20 mg capsule 20 mg PO DAILY 06/18/19 06/20/20 lisinopril 20 mg tablet 20 mg PO DAILY 06/30/19 06/01/21 multivitamin 1 cap PO DAILY 06/30/19 06/20/20 terazosin 5 mg capsule 5 mg PO DAILY 06/30/19 06/20/20 trazodone 100 mg tablet 100 mg PO HS 06/30/19 06/01/21 zolpidem 10 mg tablet 10 mg PO HS 06/30/19 06/01/21 hydrochlorothiazide 25 mg tablet 25 mg PO DAILY 08/17/19 06/20/20 Vitamin B-1 1 tablet PO DAILY 12/16/19 06/20/20 Vitamin D3 1 tablet PO DAILY 12/16/19 06/20/20 multivitamin 1 tablet PO DAILY 12/16/19 06/20/20 aspirin 81 mg PO DAILY 06/01/21 06/01/21 Allergies Allergy/AdvReac Type Severity Reaction Status Date / Time peanut Allergy Unknown Vomiting Verified 07/08/21 10:32 Review of Systems Review of Systems: All systems reviewed & are unremarkable except as noted in HPI and below PMFSH Past Medical History Medical History Anxiety Arthritis Back pain Carpal tunnel syndrome of left wrist Essential hypertension Food impaction of esophagus GERD (gastroesophageal reflux disease) Insomnia Left shoulder tendonitis Morbid obesity with BMI of 40.0-44.9, adult Obesity GIRMA (obstructive sleep apnea) Ulnar neuropathy at elbow Surgical History Surgical History History of appendectomy (~2008) History of elbow surgery (~12/25/19) Cubital Tunnel Decompression Family History Family History Mother Diabetes mellitus Family history of obesity Family history of elevated blood lipids Father Family history of cardiovascular disease Social History Social History Smoking status: Never smoker Alcohol intake: current Alcohol use details: six alcoholic beverages daily Exam Const: General: cooperative and alert Nutritional Appearance: obese Orientation/consciousness: patient oriented x3 Limitations: no limitations HENMT: Head: normocephalic and atraumatic Face and sinus: face symmetric Mouth: Yes Normal oral and palatal mucosa present, Yes lip normal, Yes oropharynx normal and Yes moist mucous membranes Throat: posterior oropharynx normal, tonsils normal and uvula midline Neck: Neck: normal visual inspection and full ROM Resp: Effort & Inspection: normal respiratory effort and able to speak in complete sentences Auscultation: clear to auscultation bilaterally Cardio: Jugular venous distension: no JVD GI: Inspection: obesity GI Palp: Yes Soft to palpation and No Tenderness to palpation present (GI) Skin: General skin exam: normal color Neuro: General: oriented to person, oriented to place, oriented to time and patient oriented x3 Course Consultations Consultation #1: I Discussed with Dr. Angelina Traore and he will call in the team for food bolus. patient able tolerate secretions at this time Date: 07/08/21 Time: 09:01 Vital Signs Vital signs: Vital Signs Temperature 96.5 F L 07/08/21 07:50 Pulse Rate 100 07/08/21 07:50 Respiratory Rate 20 07/08/21 07:50 Blood Pressure 172/102 H 07/08/21 07:50 Pulse Oxi
--- NOTE | 2021-07-08 09:35 | WPDANESEPP ---
Anes - Eval Pre Procedure Procedure: EGD Date/Time: 07/08/21 09:35 Surgeon: Yogi Preop Diagnosis: Retained Foreign Body in Esophagus Pre Op Diagnosis: food stuck in throat Patient Data Age: 56 Gender: M Height: 1.78 m Weight: 150 kg Last Vital Signs Temp 99.2 F 07/08/21 09:02 Pulse 83 07/08/21 09:02 Resp 20 07/08/21 09:02 BP 171/111 H 07/08/21 09:02 Pulse Ox 100 07/08/21 09:02 Allergies Allergy/AdvReac Type Severity Reaction Status Date / Time peanut Allergy Unknown Vomiting Verified 07/08/21 07:55 Home Medications Medication Instructions Recorded Confirmed Type carvedilol 12.5 mg tablet 12.5 mg PO Q12H 06/18/19 06/20/20 History fluoxetine 20 mg capsule 20 mg PO DAILY 06/18/19 06/20/20 History lisinopril 20 mg tablet 20 mg PO DAILY 06/30/19 06/01/21 History meloxicam 15 mg tablet 15 mg PO DAILY 06/30/19 06/20/20 History multivitamin 1 cap PO DAILY 06/30/19 06/20/20 History omeprazole 40 mg capsule,delayed 40 mg PO DAILY 06/30/19 06/20/20 History release terazosin 5 mg capsule 5 mg PO DAILY 06/30/19 06/20/20 History trazodone 100 mg tablet 100 mg PO HS 06/30/19 06/01/21 History zolpidem 10 mg tablet 10 mg PO HS 06/30/19 06/01/21 History hydrochlorothiazide 25 mg tablet 25 mg PO DAILY 08/17/19 06/20/20 History Vitamin B-1 1 tablet PO DAILY 12/16/19 06/20/20 History Vitamin D3 1 tablet PO DAILY 12/16/19 06/20/20 History multivitamin 1 tablet PO DAILY 12/16/19 06/20/20 History hydrocodone-acetaminophen 1 tablet PO Q4H PRN #30 tablet MDD 12/25/19 06/20/20 Rx Six tablets amoxicillin-pot clavulanate 1 tablet PO Q12H #20 tablet 06/01/21 Rx [Augmentin] aspirin 81 mg PO DAILY 06/01/21 06/01/21 History sulfamethoxazole-trimethoprim 1 tablet PO Q12H 7 Days #14 tablet 06/06/21 Rx [Bactrim DS] Patient hx anesthesia problems: none Family hx anesthesia problems: none Results Review: All pre-operative results and documents have been reviewed as part of the pre-operative evaluation. [facility] Past Medical History Medical History Anxiety Arthritis Back pain Carpal tunnel syndrome of left wrist Essential hypertension GERD (gastroesophageal reflux disease) Insomnia Left shoulder tendonitis Morbid obesity with BMI of 40.0-44.9, adult Obesity GIRMA (obstructive sleep apnea) Ulnar neuropathy at elbow Surgical History Surgical History History of appendectomy (~2008) History of elbow surgery (~12/25/19) Cubital Tunnel Decompression Family History Family History Mother Diabetes mellitus Family history of obesity Family history of elevated blood lipids Father Family history of cardiovascular disease Social History Social History (Updated 07/08/21 @ 09:37 by Alejandra Dupree CRNA) Smoking status: Never smoker Alcohol intake: current Alcohol use details: six alcoholic beverages daily Exam Day of Procedure 07/08/21 09:35 Patient weight: morbidly obese (BMI 47.4)
--- NOTE | 2021-07-08 10:36 | WPDANESEPPF ---
Anes - Initial Pre Proc Eval Procedure: Operation Date: 07/08/21 10:05 Proposed Procedures p Esophagogastroduodenoscopy(Not Applicable) - Feliciano Wells MD Date/Time: 07/08/21 10:36 Pre Op Diagnosis: food stuck in throat Patient Data Age: 56 Gender: M Height: 1.78 m Weight: 150 kg Last Vital Signs Temp 37.3 C 07/08/21 09:02 Pulse 83 07/08/21 09:02 Resp 20 07/08/21 09:02 BP 171/111 H 07/08/21 09:02 Pulse Ox 100 07/08/21 09:02 Allergies Allergy/AdvReac Type Severity Reaction Status Date / Time peanut Allergy Unknown Vomiting Verified 07/08/21 10:32 Home Medications Medication Instructions Recorded Confirmed Type carvedilol 12.5 mg tablet 12.5 mg PO Q12H 06/18/19 06/20/20 History fluoxetine 20 mg capsule 20 mg PO DAILY 06/18/19 06/20/20 History lisinopril 20 mg tablet 20 mg PO DAILY 06/30/19 06/01/21 History meloxicam 15 mg tablet 15 mg PO DAILY 06/30/19 06/20/20 History multivitamin 1 cap PO DAILY 06/30/19 06/20/20 History omeprazole 40 mg capsule,delayed 40 mg PO DAILY 06/30/19 06/20/20 History release terazosin 5 mg capsule 5 mg PO DAILY 06/30/19 06/20/20 History trazodone 100 mg tablet 100 mg PO HS 06/30/19 06/01/21 History zolpidem 10 mg tablet 10 mg PO HS 06/30/19 06/01/21 History hydrochlorothiazide 25 mg tablet 25 mg PO DAILY 08/17/19 06/20/20 History Vitamin B-1 1 tablet PO DAILY 12/16/19 06/20/20 History Vitamin D3 1 tablet PO DAILY 12/16/19 06/20/20 History multivitamin 1 tablet PO DAILY 12/16/19 06/20/20 History hydrocodone-acetaminophen 1 tablet PO Q4H PRN #30 tablet MDD 12/25/19 06/20/20 Rx Six tablets amoxicillin-pot clavulanate 1 tablet PO Q12H #20 tablet 06/01/21 Rx [Augmentin] aspirin 81 mg PO DAILY 06/01/21 06/01/21 History sulfamethoxazole-trimethoprim 1 tablet PO Q12H 7 Days #14 tablet 06/06/21 Rx [Bactrim DS] Patient hx anesthesia problems: none Family hx anesthesia problems: none Results Review: All pre-operative results and documents have been reviewed as part of the pre-operative evaluation. [facility] Past Medical History Medical History Anxiety Arthritis Back pain Carpal tunnel syndrome of left wrist Essential hypertension GERD (gastroesophageal reflux disease) Insomnia Left shoulder tendonitis Morbid obesity with BMI of 40.0-44.9, adult Obesity GIRMA (obstructive sleep apnea) Ulnar neuropathy at elbow Surgical History Surgical History History of appendectomy (~2008) History of elbow surgery (~12/25/19) Cubital Tunnel Decompression Family History Family History Mother Diabetes mellitus Family history of obesity Family history of elevated blood lipids Father Family history of cardiovascular disease Social History Social History Smoking status: Never smoker Alcohol intake: current Alcohol use details: six alcoholic beverages daily Anes - Eval Final PreProcedure Day of Procedure 07/08/21 10:36 Patient weight: morbidly obese Heart: regular rate and rhythm Lungs: clear to auscultation Airway: Mallampati scale class III Neurological: alert and oriented Last oral intake: >/= 8 hours ASA classification: III Emergent: yes Anesthetic plan: proceed Anesthesia type and monitoring: general ETT and standard monitoring Other findings: glidescope Results Review: All pre-operative results and documents have been reviewed as part of the pre-operative evaluation. Informed Consent: The patient's anesthetic plan and its attendant risks and benefits were discussed with the patient/family/POA. Questions were solicited and answers provided to the satisfaction of the patient/family/POA.
--- NOTE | 2021-07-08 10:39 | PM.HPGS ---
History of Present Illness History of Present Illness Consent: Risks, benefits, and alternatives have been discussed and questions answered. Patient agrees to proceed with procedure. Chief complaint: food bolus Narrative: Adam Andino is a 56 year old male with h/o COPD, morbid obesity, HTN, GERD on omeprazole with previous esophageal dilation last time [address] Jo, lately with more dysphagia. Last night had ground beef and unable to swallow since, he is here for food bolus, says that never required urgent EGD. Review of Systems Constitutional: Constitutional: Denies headache(s) and Denies weakness Eyes: Eyes: Denies blurry vision ENT: Reports Normal hearing present, Denies headache(s) and Denies neck pain Cardiovascular: Cardiovascular: Denies chest pain and Denies dyspnea Respiratory: Respiratory: Denies dyspnea Gastrointestinal: Gastrointestinal: Reports no additional gastrointestinal complaints Genitourinary: Genitourinary: Denies dysuria Musculoskeletal: Musculoskeletal: Denies neck pain Integumentary/Breasts: Skin/Breast: Denies dry skin Neurologic: Reports Normal hearing present, Denies headache(s) and Denies weakness Psychiatric: Psychiatric: Denies anxiety Endocrine: Endocrine: Denies change in body appearance Hematologic/Lymphatic: Hematologic/Lymphatic: Denies easy bleeding Allergic/Immunologic: Allergic/Immunologic: Denies urticaria PMFSH Past Medical History Medical History (Updated 07/08/21 @ 10:41 by Feliciano Wells MD) Anxiety Arthritis Back pain Carpal tunnel syndrome of left wrist Essential hypertension Food impaction of esophagus GERD (gastroesophageal reflux disease) Insomnia Left shoulder tendonitis Morbid obesity with BMI of 40.0-44.9, adult Obesity GIRMA (obstructive sleep apnea) Ulnar neuropathy at elbow Surgical History Surgical History History of appendectomy (~2008) History of elbow surgery (~12/25/19) Cubital Tunnel Decompression Family History Family History Mother Diabetes mellitus Family history of obesity Family history of elevated blood lipids Father Family history of cardiovascular disease Social History Social History Smoking status: Never smoker Alcohol intake: current Alcohol use details: six alcoholic beverages daily Meds Home Medications and Allergies Home Medications Medication Instructions Recorded Confirmed Type carvedilol 12.5 mg tablet 12.5 mg PO Q12H 06/18/19 06/20/20 History fluoxetine 20 mg capsule 20 mg PO DAILY 06/18/19 06/20/20 History lisinopril 20 mg tablet 20 mg PO DAILY 06/30/19 06/01/21 History meloxicam 15 mg tablet 15 mg PO DAILY 06/30/19 06/20/20 History multivitamin 1 cap PO DAILY 06/30/19 06/20/20 History omeprazole 40 mg capsule,delayed 40 mg PO DAILY 06/30/19 06/20/20 History release terazosin 5 mg capsule 5 mg PO DAILY 06/30/19 06/20/20 History trazodone 100 mg tablet 100 mg PO HS 06/30/19 06/01/21 History zolpidem 10 mg tablet 10 mg PO HS 06/30/19 06/01/21 History hydrochlorothiazide 25 mg tablet 25 mg PO DAILY 08/17/19 06/20/20 History Vitamin B-1 1 tablet PO DAILY 12/16/19 06/20/20 History Vitamin D3 1 tablet PO DAILY 12/16/19 06/20/20 History multivitamin 1 tablet PO DAILY 12/16/19 06/20/20 History hydrocodone-acetaminophen 1 tablet PO Q4H PRN #30 tablet MDD 12/25/19 06/20/20 Rx Six tablets amoxicillin-pot clavulanate 1 tablet PO Q12H #20 tablet 06/01/21 Rx [Augmentin] aspirin 81 mg PO DAILY 06/01/21 06/01/21 History sulfamethoxazole-trimethoprim 1 tablet PO Q12H 7 Days #14 tablet 06/06/21 Rx [Bactrim DS] Allergies Allergy/AdvReac Type Severity Reaction Status Date / Time peanut Allergy Unknown Vomiting Verified 07/08/21 10:32 Vital Signs Vital Signs - 24 hr 07/08/21 07:50 01
[2021-07-08] MEDS: LACTATED RINGERS 1,000 ML 150 ML IV CONT (10:45)
== END 2021-07-08 12:00 | disposition home or self-care (01) ==
LOC: ANHED 09:35 → ANHSURGERY 10:39 → ANHENDO 11:01
PROVIDERS: Emergency Provider General Practice; Visit Provider Internal Medicine Gastroenterology
PROC: 0DJ08ZZ Inspection of Upper Intestinal Tract, Via Natural or Artificial Opening Endoscopic (ICD-10-PCS; CPT 43235; principal; 2021-07-08 10:05)
DX: T18.128A Food in esophagus causing other injury, initial encounter (principal); R13.10 Dysphagia, unspecified; K21.00 Gastro-esophageal reflux disease with esophagitis, without bleeding; K29.70 Gastritis, unspecified, without bleeding; K29.80 Duodenitis without bleeding; I10 Essential (primary) hypertension; G47.33 Obstructive sleep apnea (adult) (pediatric); J44.9 Chronic obstructive pulmonary disease, unspecified; E66.01 Morbid (severe) obesity due to excess calories; Z68.42 Body mass index [BMI] 45.0-49.9, adult; Z79.82 Long term (current) use of aspirin
CPT/HCPCS: 43247; 43239; 88305; 99285; J0330; J2250; J2704; J7120

== ENCOUNTER 2021-09-01 00:37 | Day surgery (SDC) | payer OTHER, MEDICAID, SELFPAY ==
[2021-08-18 13:51] VITALS: BMI 47.4
--- NOTE | 2021-08-31 13:38 | WPDANESEPP ---
Anes - Eval Pre Procedure Procedure: Operation Date: 09/01/21 09:30 Proposed Procedures p Esophagogastroduodenoscopy - Feliciano Wells MD Date/Time: 08/31/21 13:38 Pre Op Diagnosis: esophageal stricture Patient Data Age: 56 Gender: M Height: 1.78 m Weight: 150 kg Allergies Allergy/AdvReac Type Severity Reaction Status Date / Time peanut Allergy Unknown Vomiting Verified 08/18/21 13:53 Home Medications Medication Instructions Recorded Confirmed Type carvedilol 12.5 mg tablet 12.5 mg PO Q12H 06/18/19 08/18/21 History fluoxetine 20 mg capsule 20 mg PO DAILY 06/18/19 08/18/21 History lisinopril 20 mg tablet 20 mg PO DAILY 06/30/19 08/18/21 History terazosin 5 mg capsule 5 mg PO DAILY 06/30/19 08/18/21 History trazodone 100 mg tablet 100 mg PO HS 06/30/19 08/18/21 History zolpidem 10 mg tablet 10 mg PO HS 06/30/19 08/18/21 History hydrochlorothiazide 25 mg tablet 25 mg PO DAILY 08/17/19 08/18/21 History Vitamin B-1 1 tablet PO DAILY 12/16/19 08/18/21 History aspirin 81 mg PO DAILY 06/01/21 08/18/21 History omeprazole 40 mg capsule,delayed 40 mg PO BID #60 cap 07/08/21 08/18/21 Rx release Patient hx anesthesia problems: none Family hx anesthesia problems: none Results Review: All pre-operative results and documents have been reviewed as part of the pre-operative evaluation. [facility] Past Medical History Medical History Anxiety Arthritis Back pain Carpal tunnel syndrome of left wrist Essential hypertension Food impaction of esophagus GERD (gastroesophageal reflux disease) Insomnia Left shoulder tendonitis Morbid obesity with BMI of 40.0-44.9, adult Obesity GIRMA (obstructive sleep apnea) Ulnar neuropathy at elbow Surgical History Surgical History History of appendectomy (~2008) History of elbow surgery (~12/25/19) Cubital Tunnel Decompression Family History Family History Mother Diabetes mellitus Family history of obesity Family history of elevated blood lipids Father Family history of cardiovascular disease Social History Social History Smoking status: Never smoker Alcohol intake: current Drinks per week: 50 Alcohol use details: patient states he drinks at least 7-8 beers/day Substance use: never Substance use type: does not use Living arrangements: with family Additional living arrangements comments: lives with mother and girlfriend Spiritual care concerns: No Exam Day of Procedure 08/31/21 13:38
[2021-09-01 08:37] VITALS: BP 158/86; PULSE 85; RESP 22; TEMP 36.6; O2SAT 96
[2021-09-01] MEDS: LACTATED RINGERS 1,000 ML 150 ML IV CONT (08:47)
--- NOTE | 2021-09-01 08:57 | WPDANESEFPP ---
Anes - Eval Final PreProcedure Day of Procedure 09/01/21 08:57 Patient weight: morbidly obese Heart: regular rate and rhythm Lungs: clear to auscultation Airway: Mallampati scale class III Last oral intake: >/= 8 hours ASA classification: III Emergent: no Anesthetic plan: proceed Anesthesia type and monitoring: general GIVS and standard monitoring Results Review: All pre-operative results and documents have been reviewed as part of the pre-operative evaluation. Informed Consent: The patient's anesthetic plan and its attendant risks and benefits were discussed with the patient/family/POA. Questions were solicited and answers provided to the satisfaction of the patient/family/POA.
--- NOTE | 2021-09-01 10:02 | PM.HPGS ---
History of Present Illness History of Present Illness Consent: Risks, benefits, and alternatives have been discussed and questions answered. Patient agrees to proceed with procedure. Chief complaint: esophageal stricture Narrative: Adam Andino is a 56 year old male with gerd and food bolus 07/2021 due to esophagitis, performed urgent EGD to remove bolus. Taking ppi bid, sometimes symptomatic. Review of Systems Constitutional: Constitutional: Denies headache(s) and Denies weakness Eyes: Eyes: Denies blurry vision ENT: Reports Normal hearing present, Denies headache(s) and Denies neck pain Cardiovascular: Cardiovascular: Denies chest pain and Denies dyspnea Respiratory: Respiratory: Denies dyspnea Gastrointestinal: Gastrointestinal: Reports no additional gastrointestinal complaints Genitourinary: Genitourinary: Denies dysuria Musculoskeletal: Musculoskeletal: Denies neck pain Integumentary/Breasts: Skin/Breast: Denies dry skin Neurologic: Reports Normal hearing present, Denies headache(s) and Denies weakness Psychiatric: Psychiatric: Denies anxiety Endocrine: Endocrine: Denies change in body appearance Hematologic/Lymphatic: Hematologic/Lymphatic: Denies easy bleeding Allergic/Immunologic: Allergic/Immunologic: Denies urticaria PMFSH Past Medical History Medical History (Updated 09/01/21 @ 10:03 by Feliciano Wells MD) Anxiety Arthritis Back pain Carpal tunnel syndrome of left wrist Dysphagia Essential hypertension Food impaction of esophagus GERD (gastroesophageal reflux disease) Insomnia Left shoulder tendonitis Morbid obesity with BMI of 40.0-44.9, adult Obesity GIRMA (obstructive sleep apnea) Ulnar neuropathy at elbow Surgical History Surgical History History of appendectomy (~2008) History of elbow surgery (~12/25/19) Cubital Tunnel Decompression Family History Family History Mother Diabetes mellitus Family history of obesity Family history of elevated blood lipids Father Family history of cardiovascular disease Social History Social History Smoking status: Never smoker Alcohol intake: current Drinks per week: 50 Alcohol use details: patient states he drinks at least 7-8 beers/day Substance use: never Substance use type: does not use Living arrangements: with family Additional living arrangements comments: lives with mother and girlfriend Spiritual care concerns: No Meds Home Medications and Allergies Home Medications Medication Instructions Recorded Confirmed Type carvedilol 12.5 mg tablet 12.5 mg PO Q12H 06/18/19 08/18/21 History fluoxetine 20 mg capsule 20 mg PO DAILY 06/18/19 08/18/21 History lisinopril 20 mg tablet 20 mg PO DAILY 06/30/19 08/18/21 History terazosin 5 mg capsule 5 mg PO DAILY 06/30/19 08/18/21 History trazodone 100 mg tablet 100 mg PO HS 06/30/19 08/18/21 History zolpidem 10 mg tablet 10 mg PO HS 06/30/19 08/18/21 History hydrochlorothiazide 25 mg tablet 25 mg PO DAILY 08/17/19 08/18/21 History Vitamin B-1 1 tablet PO DAILY 12/16/19 08/18/21 History aspirin 81 mg PO DAILY 06/01/21 08/18/21 History omeprazole 40 mg capsule,delayed 40 mg PO BID #60 cap 07/08/21 08/18/21 Rx release Allergies Allergy/AdvReac Type Severity Reaction Status Date / Time peanut Allergy Unknown Vomiting Verified 09/01/21 08:36 Vital Signs Vital Signs - 24 hr 09/01/21 08:37 Temperature 97.9 F Pulse Rate 85 Respiratory Rate 22 H Blood Pressure 158/86 H Pulse Oximetry 96 Exam Const: General: comfortable and no acute distress HENMT: General nose exam: Normal nares present Eyes: General: appearance normal, both eyes and all related structures Neck: Neck: no JVD Resp: Auscultation: clear to auscultation bilaterally Cardio: Rate: regular ra
[2021-09-01 10:14] VITALS: BP 129/76; PULSE 91; RESP 20; O2SAT 98
[2021-09-01 10:24] VITALS: BP 133/83; PULSE 84; RESP 21; O2SAT 98
[2021-09-01 10:34] VITALS: BP 131/79; PULSE 83; RESP 19; O2SAT 96
== END 2021-09-01 10:42 | disposition home or self-care (01) ==
PROVIDERS: PCP Physician Assistant; Visit Provider Internal Medicine Gastroenterology
PROC: 0DJ08ZZ Inspection of Upper Intestinal Tract, Via Natural or Artificial Opening Endoscopic (ICD-10-PCS; CPT 43235; principal; 2021-09-01 09:30)
DX: K21.9 Gastro-esophageal reflux disease without esophagitis (principal); R13.19 Other dysphagia; K22.2 Esophageal obstruction; K29.50 Unspecified chronic gastritis without bleeding; E66.9 Obesity, unspecified; Z68.42 Body mass index [BMI] 45.0-49.9, adult; F41.9 Anxiety disorder, unspecified; M19.90 Unspecified osteoarthritis, unspecified site; I10 Essential (primary) hypertension; G47.00 Insomnia, unspecified; G47.33 Obstructive sleep apnea (adult) (pediatric); Z79.82 Long term (current) use of aspirin
CPT/HCPCS: 43248; 43239; 88305; J2001; J2704; J7120

== ENCOUNTER → 2021-09-29 12:47 | Outpatient (CLI) | payer OTHER, MEDICAID, SELFPAY ==
--- NOTE | ~2021-09-29 | US_ITS ---
EXAMINATION: US venous doppler UE LT DATE: 09/29/2021 14:15 INDICATION: Left upper limb edema. TECHNIQUE: Grayscale ultrasound images without and with compression and Doppler ultrasound images of the left upper extremity veins were obtained. COMPARISON: None. FINDINGS: The visualized portions of the left internal jugular vein, subclavian vein, axillary vein, brachial v eins, basilic vein, cephalic vein, radial vein, and ulnar vein are patent. IMPRESSION: 1. No deep venous thrombosis. Reviewed, dictated and finalized at location A.
--- NOTE | ~2021-09-29 | US_ITS ---
EXAMINATION: US soft tissue head and neck DATE: 09/29/2021 13:17 INDICATION: Mass of neck. TECHNIQUE: Multiple grayscale and Doppler ultrasound images of the neck were obtained. COMPARISON: CTA neck 09/04/2019 FINDINGS: There is no abnormal mass or lymphadenopathy in the patient's area of concern in left supra clavicular region. IMPRESSION: 1. No abnormal mass or lymphadenopathy in the patient's area of concern in left supraclavicular regio n. Reviewed, dictated and finalized at location A. IMPRESSION: 1. No abnormal mass or lymphadenopathy in the patient's area of concern in left supraclavicular region.
--- NOTE | ~2021-09-29 | XR_ITS ---
XR hip BI wo pelvis DATE: 09/29/2021 13:31 INDICATION: Hip pain TECHNIQUE: AP and lateral views of each hip COMPARISON: None FINDINGS: No fracture or dislocation, avascular necrosis or bone destruction of either hip is evident . Hip joint spaces are symmetric and well preserved. The pubic symphysis and sacral iliac joints are unremarkable. IMPRESSION: Negative Reviewed, dictated and finalized at location A. IMPRESSION: Negative
== END ==
PROVIDERS: PCP Physician Assistant; Visit Provider Physician Assistant
DX: M25.559 Pain in unspecified hip (principal); R22.1 Localized swelling, mass and lump, neck; R60.0 Localized edema
CPT/HCPCS: 73521; 76536; 93971

== ENCOUNTER → 2021-10-13 09:55 | Outpatient (CLI) | payer OTHER, MEDICAID, SELFPAY ==
--- NOTE | ~2021-10-13 | MR_ITS ---
EXAMINATION: MR lumbar spine wo con DATE: 10/13/2021 10:28 INDICATION: Chronic low back pain. TECHNIQUE: Magnetic resonance imaging (MRI) of the lumbar spine was performed without intravenous con trast. Sequences included sagittal T2-weighted FSE, sagittal T2-weighted FS FSE, sagittal T1-weighted FSE, and axial T2-weighted FSE. COMPARISON: Lumbar spine MRI 03/22/2020 FINDINGS: Bone alignment is normal. There is a chronic compression fracture of L1 with 3/5 loss of he ight. Intervertebral disc heights are normal. The distal spinal cord signal intensity is normal. The conus medullaris is at L1-L2. The following disc levels are specifically discussed: L1-L2: There is a left foraminal protrusion with annular fissure. There is no facet joint osteoarthri tis. There is mild left neural foraminal stenosis. There is no central canal stenosis. L2-L3: The disc does not extend beyond the endplate margin. There is mild bilateral facet joint osteo arthritis. There is no neural foraminal stenosis. There is no central canal stenosis. L3-L4: The disc does not extend beyond the endplate margin. There is no facet joint osteoarthritis. T here is no neural foraminal stenosis. There is no central canal stenosis. L4-L5: The disc does not extend beyond the endplate margin. There is no facet joint osteoarthritis. T here is no neural foraminal stenosis. There is no central canal stenosis. L5-S1: The disc does not extend beyond the endplate margin. There is no facet joint osteoarthritis. T here is no neural foraminal stenosis. There is no central canal stenosis. IMPRESSION: 1. Mild lumbar spondylosis, stable from 03/22/2020. Reviewed, dictated and finalized at location A.
== END ==
PROVIDERS: Visit Provider Nurse Practitioner Family
DX: G89.29 Other chronic pain (principal); M47.816 Spondylosis without myelopathy or radiculopathy, lumbar region
CPT/HCPCS: 72148

== ENCOUNTER → 2021-10-21 09:01 | Outpatient (CLI) | payer OTHER, MEDICAID, SELFPAY ==
--- NOTE | ~2021-10-21 | US_ITS ---
EXAMINATION: US venous doppler [facility] DATE: 10/21/2021 09:37 INDICATION: Localized edema, leg swelling. TECHNIQUE: Grayscale images without and with compression and Doppler images of the left lower extremi ty veins were obtained. COMPARISON: None. FINDINGS: The left common femoral vein, profunda femoral vein, femoral vein, popliteal vein, peroneal vein, pos terior tibial veins, and greater saphenous vein are patent. IMPRESSION: 1. Patent bilateral lower extremity veins. No evidence of deep venous thrombosis. Reviewed, dictated and finalized at location K. IMPRESSION: 1. Patent bilateral lower extremity veins. No evidence of deep venous thrombos is.
== END ==
PROVIDERS: PCP Physician Assistant; Visit Provider Physician Assistant
DX: R60.0 Localized edema (principal)
CPT/HCPCS: 93971

== ENCOUNTER 2021-10-30 09:06 | Outpatient (CLI) | payer OTHER, MEDICAID, SELFPAY ==
--- NOTE | ~2021-10-30 | US_ITS ---
EXAMINATION: US arterial ankle brachial ind DATE: 10/30/2021 10:52 INDICATION: Normal pedal pulses TECHNIQUE: Segmental pressures and plethysmographic and Doppler waveforms of the brachial and lower e xtremity arteries were obtained. COMPARISON: None. FINDINGS: Right and left brachial artery pressures of 135 mm Hg and 130 mm Hg, respectively, are concordant (no rmal difference <= 30 mmHg). The right ankle-brachial index (VANNA) is 1.20 (normal >= 0.9-1.0). The right great toe-brachial index (TBI) is 0.90 (normal >= 0.65). Arterial Doppler waveforms are biphasic with brisk systolic upstrokes at both right posterior tibial and dorsalis pedis arteries. The left VANNA is 1.15. The left TBI is 0.92. Arterial Doppler waveforms are biphasic with brisk systol ic upstrokes at both left posterior tibial and dorsalis pedis arteries. IMPRESSION: 1. No significant arterial occlusive disease to either lower limb with normal bilateral ABIs and TBIs . Reviewed, dictated and finalized at location A. IMPRESSION: 1. No significant arterial occlusive disease to either lower limb with normal b ilateral ABIs and TBIs.
== END 2021-10-30 09:07 | disposition home or self-care (01) ==
LOC: ANHIMG 09:13
PROVIDERS: PCP Physician Assistant; Visit Provider Physician Assistant
DX: R09.89 Other specified symptoms and signs involving the circulatory and respiratory systems (principal)
CPT/HCPCS: 93922

== ENCOUNTER 2021-12-09 16:01 | Inpatient (IN) | payer OTHER, MEDICAID, SELFPAY ==
[2021-12-09] VITALS (11 sets, daily range): BP systolic 107–137; BP diastolic 65–69; PULSE 71–105; RESP 16–24; TEMP 35.9–37.2; O2SAT 94–98
--- NOTE | ~2021-12-09 | XR_ITS ---
EXAMINATION: XR chest 1V portable Exam Date/Time: 12/09/2021 16:15 CDT HISTORY: TOLD POTASSIUM LEVELS ARE HIGH, SICK FEELING Comparison: 01/11/2017. RESULT: Lines, tubes, and devices: None. Lungs and pleura: Lordotic positioning, low volumes with crowding. Cardiomediastinal silhouette: Stable cardiomediastinal silhouette. Other: No acute osseous or upper abdominal finding. IMPRESSION: No acute cardiopulmonary process. Reviewed, dictated and finalized at location K.
--- NOTE | 2021-12-09 16:14 | ECG_ITS ---
Measurements Intervals [place] Rate: 80 P: 47 IA: 165 QRS: 37 QRSD: 89 T: 29 QT: 340 QTc: 393 Interpretive Statements SINUS RHYTHM DELAYED R-WAVE PROGRESSION NONSPECIFIC T-WAVE ABNORMALITY ABNORMAL ECG NO PREVIOUS ECG AVAILABLE FOR COMPARISON Electronically Signed On 12-10-2021 11:01:25 CDT by Warner Mckeon M.D.
--- NOTE | 2021-12-09 16:21 | ED.GENADULT ---
HPI - General Adult General Chief complaint: Recheck/Abnormal Lab/Rx Stated complaint: potassium level extremely high Time Seen by Provider: 12/09/21 16:03 Source: RN notes reviewed History of Present Illness HPI narrative: Patient presents emergency department from home for hyperkalemia. Patient states that for the past 2 weeks has been feeling generally weak states has been associated with a feeling of shortness of breath states that symptoms been worse over the past several days states he was seen by his primary care physician and had blood work drawn this past December 05 and states that he was called yesterday December 08 and told that his potassium was high need to be evaluated the emergency department patient denies having any previous kidney issues he denies any fevers or chills chest pain abdominal pain nausea vomiting or any other symptoms Related Data Home Medications Medication Instructions Recorded Confirmed carvedilol 12.5 mg tablet 25 mg PO Q12H 06/18/19 08/18/21 fluoxetine 20 mg capsule 20 mg PO DAILY 06/18/19 08/18/21 Vitamin B-1 1 tablet PO DAILY 12/16/19 08/18/21 aspirin 81 mg chewable tablet 81 mg PO DAILY 06/01/21 08/18/21 folic acid 1 mg tablet 1 mg PO DAILY 12/09/21 12/09/21 hydrocodone 5 mg-acetaminophen 325 tablet 12/09/21 mg tablet lisinopril 20 mg tablet tablet 12/09/21 multivitamin tablet 12/09/21 omeprazole 40 mg capsule,delayed cap 12/09/21 release potassium chloride 20 mEq tablet PO 12/09/21 tablet,extended release(part/cryst) (Klor-Con M) spironolactone 25 mg tablet tablet 12/09/21 terazosin 2 mg capsule cap 12/09/21 trazodone 50 mg tablet tablet 12/09/21 zolpidem 5 mg tablet tablet 12/09/21 12/09/21 Allergies Allergy/AdvReac Type Severity Reaction Status Date / Time peanut Allergy Unknown Vomiting Verified 12/09/21 16:14 Review of Systems Review of Systems: Gen.: Denies fevers or chills Eyes: Denies eye pain or visual change ENT: Denies congestion Respiratory: Ports shortness of breath CV: Denies chest pain or palpitations GI: Denies abdominal pain nausea, emesis or diarrhea denies burning, urgency, frequency or hematuria Musculoskeletal: Denies back pain or muscle pain Neuro: Reports weakness Skin: Denies rash Except as documented, all other systems reviewed and negative [facility] Past Medical History Medical History Anxiety Arthritis Back pain Carpal tunnel syndrome of left wrist Dysphagia Essential hypertension Food impaction of esophagus GERD (gastroesophageal reflux disease) Insomnia Left shoulder tendonitis Morbid obesity with BMI of 40.0-44.9, adult Obesity GIRMA (obstructive sleep apnea) Ulnar neuropathy at elbow Surgical History Surgical History History of appendectomy (~2008) History of elbow surgery (~12/25/19) Cubital Tunnel Decompression Family History Family History Mother Diabetes mellitus Family history of obesity Family history of elevated blood lipids Father Family history of cardiovascular disease Social History Social History Smoking status: Never smoker Alcohol intake: current Drinks per week: 50 Alcohol use details: patient states he drinks at least 7-8 beers/day Substance use: never Substance use type: does not use Additional living arrangements comments: lives with mother and girlfriend Spiritual care concerns: No Exam Narrative: APPEARANCE: No acute distress, nontoxic, resting in bed EYES: EOMI HEENT: Normocephalic, atraumatic, OMM RESPIRATORY: No respiratory distress Clear to auscultation bilaterally with no rhonchi wheezing or rales. CARDIOVASCULAR: Regular rate and rhythm without murmurs rubs or gallops. ABDOMINAL: Soft, nontender, nondistended, no rebound or guarding MUSCU
[2021-12-09 16:36] LABS: Basophils Percent Auto 0.3 % (0.2-1.2); Eosinophils Absolute Auto 0.1 K/mm3 (0-0.3); Eosinophils Percent Auto 0.8 % (0-4.4); Immature Granulocyte Percent A 0.7 % (0-0.5); Lymphocytes Absolute Auto 1.48 K/mm3 (0.9-3.2); Lymphocytes Percent Auto 10.4 % (18.3-44.2); Mean Corpuscular HGB Conc 35.9 g/dl (32-36); Mean Corpuscular Hemoglobin 33.8 pg (26-34); Mean Corpuscular Volume 94.2 fl (80-100); Mean Platelet Volume 8.6 fl (7.4-10.4); Monocytes Absolute Auto 0.8 K/mm3 (0.1-0.6); Monocytes Percent Auto 5.8 % (2.6-8.5); Neutrophils Absolute Auto 11.7 K/mm3 (1.3-6.7); Platelet Count Result 308 k/mm3 (150-375); Red Blood Count 4.14 M/mm3 (4.6-6.20); Red Cell Distribution Width 11.2 % (11.5-14.5); White Blood Count 14.3 K/mm3 (4.5-10.0)
[2021-12-09 16:50] LABS: INR 1.1; Prothrombin Time 13.7 Seconds (11.1-14.7)
[2021-12-09 16:51] LABS: Alanine Aminotransferase 36 U/L (6-50); Albumin Level 4.5 g/dL (3.5-5.1); Alkaline Phosphatase 96 U/L (38-126); Anion Gap 9 mmol/L (8-16); Aspartate Amino Transferase 30 U/L (17-59); Bilirubin,Total 0.8 mg/dL (0.2-1.3); Blood Urea Nitrogen 14 mg/dL (9-20); Calcium 9.1 mg/dL (8.4-10.2); Carbon Dioxide 20 mmol/L (22-30); Chloride 87 mmol/L (98-107); Estimated CRCL calculation 88 ml/min; Estimated Glomerular Filt Rate > 60; Glucose 119 mg/dL (65-110); Magnesium 1.5 mg/dL (1.6-2.3); Partial Thromboplastin Time 29.2 SECONDS (22.3-36.8); Potassium 4.5 mmol/L (3.4-5.0); Sodium 116 mmol/L (137-145)
[2021-12-09 17:22] LABS: NT Pro B Type Natriuretic Pept 26 pg/mL (5-100); Troponin I < 0.012 ng/mL (0.000-0.034)
[2021-12-09 17:30] LABS: Appearance Urine Clear (Clear); Bilirubin Urine 1+ (Negative); Blood Urine Negative (Negative); Color Urine Yellow (Yellow); Glucose Urine UA Negative (Negative); Ketones Urine 1+ mg/dL (Negative); Leukocyte Esterase Ur Negative LEU/UL (Negative); Nitrate Urine Negative (Negative); Protein Urine Negative (Negative)
[2021-12-09 17:35] LABS: Mucus Urine Rare /lpf; RBC Urine 0-2 /hpf (0-2); Squamous Epithelial Cell Urine Rare /hpf (Few); WBC Urine 0-3 /hpf
[2021-12-09] MEDS: THIAMINE HCL 200 MG/2 ML VIAL 100 MG IV PUSH (17:43)
[2021-12-09 17:46] LABS: Add Urine Microscopic? YES
[2021-12-09 17:46] LABS: Ethanol < 10 mg/dL (<10)
[2021-12-09] MEDS: MAGNESIUM SULF 2 GM/WATER 50ML 2 GM/50 ML BAG IVPB (17:48)
[2021-12-09 17:52] LABS: Sodium Urine Random 24 meq/L
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
[2021-12-09 20:35] LABS: Anion Gap 10 mmol/L (8-16); Blood Urea Nitrogen 15 mg/dL (9-20); Calcium 8.9 mg/dL (8.4-10.2); Carbon Dioxide 24 mmol/L (22-30); Chloride 85 mmol/L (98-107); Estimated CRCL calculation 88 ml/min; Estimated Glomerular Filt Rate > 60; Glucose 94 mg/dL (65-110); Potassium 4.5 mmol/L (3.4-5.0); Sodium 119 mmol/L (137-145)
--- NOTE | 2021-12-09 21:00 | PC.NURSE ---
This patient, Adam Andino, was admitted to IMU Room 203-01. Patient/family oriented to hospital policies and general routines including ID bracelet, bed and alarms, visiting hours, pain management, procedures, bathroom and other care routines, personal items, smoking policy, room service/diet, and visiting hours. Patient/Family are encouraged to report perceived risks to care and to ask questions if they do not understand what they are told or what they should do.
[2021-12-09 21:21] LABS: Potassium Urine Random 64.4 meq/L
[2021-12-09 21:30] LABS: Creatinine Urine 281.8 mg/dL
[2021-12-10] VITALS (18 sets, daily range): BP systolic 112–137; BP diastolic 60–82; PULSE 63–102; RESP 16–22; TEMP 36.2–36.9; O2SAT 96–100
[2021-12-10 00:13] LABS: Anion Gap 8 mmol/L (8-16); Blood Urea Nitrogen 17 mg/dL (9-20); Calcium 8.9 mg/dL (8.4-10.2); Carbon Dioxide 26 mmol/L (22-30); Chloride 84 mmol/L (98-107); Estimated CRCL calculation 96 ml/min; Estimated Glomerular Filt Rate > 60; Glucose 101 mg/dL (65-110); Potassium 4.6 mmol/L (3.4-5.0); Sodium 118 mmol/L (137-145)
[2021-12-10] MEDS: chlordiazePOXIDE (*CRX) 10 MG CAPSULE PO ×2 (00:59→21:21)
[2021-12-10] MEDS: ZOLPIDEM TARTRATE (*CRX) 5 MG TABLET PO ×2 (00:59→21:18)
[2021-12-10] MEDS: traZODone HCL 50 MG TABLET PO ×2 (01:04→21:18)
[2021-12-10] MEDS: carvediloL 25 MG TABLET PO ×3 (01:04→21:17)
[2021-12-10] MEDS: HYDROcodone/acetaminophen (*CRX) 5-325 MG TABLET 1 TAB PO ×4 (01:26→17:31)
[2021-12-10 02:30] LABS: Basophils Absolute Auto 0.1 K/mm3 (0.0-0.1); Basophils Percent Auto 0.5 % (0.2-1.2); Eosinophils Absolute Auto 0.1 K/mm3 (0-0.3); Eosinophils Percent Auto 0.8 % (0-4.4); Hematocrit 36.9 % (42.0-52.0); Hemoglobin 13.1 g/dL (14.0-18.0); Immature Granulocyte Absolute 0.09 K/mm3 (0.00-0.031); Immature Granulocyte Percent A 0.8 % (0-0.5); Lymphocytes Absolute Auto 1.67 K/mm3 (0.9-3.2); Lymphocytes Percent Auto 14.7 % (18.3-44.2); Mean Corpuscular HGB Conc 35.5 g/dl (32-36); Mean Corpuscular Hemoglobin 33.5 pg (26-34); Mean Corpuscular Volume 94.4 fl (80-100); Mean Platelet Volume 8.7 fl (7.4-10.4); Monocytes Absolute Auto 0.8 K/mm3 (0.1-0.6); Monocytes Percent Auto 7.4 % (2.6-8.5); Neutrophils Absolute Auto 8.6 K/mm3 (1.3-6.7); Neutrophils Percent Auto 75.8 % (45.5-73.1); Platelet Count Result 281 k/mm3 (150-375); Red Blood Count 3.91 M/mm3 (4.6-6.20); Red Cell Distribution Width 11.3 % (11.5-14.5); White Blood Count 11.4 K/mm3 (4.5-10.0)
[2021-12-10 02:45] LABS: Alanine Aminotransferase 36 U/L (6-50); Albumin Level 4.2 g/dL (3.5-5.1); Alkaline Phosphatase 98 U/L (38-126); Anion Gap 9 mmol/L (8-16); Aspartate Amino Transferase 29 U/L (17-59); Bilirubin,Total 0.6 mg/dL (0.2-1.3); Blood Urea Nitrogen 15 mg/dL (9-20); Calcium 8.7 mg/dL (8.4-10.2); Carbon Dioxide 25 mmol/L (22-30); Chloride 85 mmol/L (98-107); Estimated CRCL calculation 96 ml/min; Estimated Glomerular Filt Rate > 60; Glucose 103 mg/dL (65-110); Potassium 4.5 mmol/L (3.4-5.0); Sodium 119 mmol/L (137-145)
[2021-12-10 05:46] LABS: Anion Gap 7 mmol/L (8-16); Blood Urea Nitrogen 15 mg/dL (9-20); Calcium 8.8 mg/dL (8.4-10.2); Carbon Dioxide 24 mmol/L (22-30); Chloride 88 mmol/L (98-107); Estimated CRCL calculation 96 ml/min; Estimated Glomerular Filt Rate > 60; Glucose 104 mg/dL (65-110); Potassium 4.2 mmol/L (3.4-5.0); Sodium 119 mmol/L (137-145)
[2021-12-10] MEDS: HEPARIN SODIUM 5,000 UNITS/ML VIAL 5000 UNITS SUB-Q ×2 (08:21→21:18)
[2021-12-10] MEDS: POTASSIUM CHLORIDE 20 MEQ TABLET.ER PO ×2 (08:22→17:33)
[2021-12-10] MEDS: FOLIC ACID 1 MG TABLET PO ×2 (08:22→08:25)
[2021-12-10] MEDS: ASPIRIN 81 MG CHEWABLE TABLET PO (08:23)
[2021-12-10] MEDS: THIAMINE HCL 100 MG TABLET PO ×2 (08:23→08:27)
[2021-12-10] MEDS: MULTIVITAMINS THERAPEUTIC TAB (*BKC) 1 TABLET PO (08:24)
[2021-12-10] MEDS: PANTOPRAZOLE 40 MG TABLET PO ×2 (08:24→17:33)
[2021-12-10] MEDS: THERAPEUTIC MULTIVITAMINS/MINERALS TAB (*BKC) 1 TABLET PO (08:26)
[2021-12-10 09:18] LABS: Anion Gap 8 mmol/L (8-16); Blood Urea Nitrogen 14 mg/dL (9-20); Calcium 9.2 mg/dL (8.4-10.2); Carbon Dioxide 27 mmol/L (22-30); Chloride 86 mmol/L (98-107); Estimated CRCL calculation 96 ml/min; Estimated Glomerular Filt Rate > 60; Glucose 107 mg/dL (65-110); Potassium 4.4 mmol/L (3.4-5.0); Sodium 121 mmol/L (137-145)
--- NOTE | 2021-12-10 09:29 | PM.IMPN ---
Progress Note: A&P Assessment and Plan (1) Hyponatremia: Code(s): E87.1 - Hypo-osmolality and hyponatremia Status: Acute Assessment and Plan: Sodium correcting too rapidly on 2 L restriction, will increase restriction to 2500 mL. Continue to monitor sodium. Suspect symptoms secondary to polydipsia and alcoholism. Continue to monitor for withdrawal symptoms. (2) Hypomagnesemia: Code(s): E83.42 - Hypomagnesemia Status: Acute Assessment and Plan: Resolved (3) Hypertension: Code(s): I10 - Essential (primary) hypertension Status: Acute Assessment and Plan: Pressures were reviewed and they are stable. Monitor closely as hydrochlorothiazide is on hold. Will also hold lisinopril and spironolactone. (4) Alcohol abuse: Code(s): F10.10 - Alcohol abuse, uncomplicated Status: Acute Assessment and Plan: He has cut down his alcohol intake by half over the last 1 month and was encouraged to continue on the journey to stopping alcohol altogether. He denies ever having signs or symptoms of alcohol withdrawal however I am suspicious he may have had a seizure on a couple of occasions as detailed in HPI. Initiate CIWA protocol. Continue thiamine and folic acid supplementation. (5) Gastroesophageal reflux disease: Code(s): K21.9 - Gastro-esophageal reflux disease without esophagitis Status: Acute Assessment and Plan: No acute issues. Continue omeprazole. (6) Obstructive sleep apnea: Code(s): G47.33 - Obstructive sleep apnea (adult) (pediatric) Status: Acute Assessment and Plan: CPAP will be provided for the patient to use while hospitalized. (7) Anxiety: Code(s): F41.9 - Anxiety disorder, unspecified Status: Acute Assessment and Plan: Hold fluoxetine, consider restarting at 20 mg instead of 40 due to his longstanding hyponatremia Subjective Date/time seen: 12/10/21 09:29 Interval history: Patient resting comfortably in bed without complaints. Food tray was brought in during my visit, he sat up the side of bed easily and was able to pull the tray to himself. He denied any nausea vomiting diarrhea. No chest pain or shortness of breath. States he still feels quite weak and felt jittery last night requiring medication for his alcohol withdrawal symptoms. Review of Systems Review of Systems: Twelve point review of systems was reviewed and is negative except as noted in the HPI Exam Narrative: General: Patient resting comfortably in bed, no acute distress HEENT: Atraumatic, normocephalic, mucous membranes moist CV: Regular rate and rhythm, S1, S2, no murmurs rubs or gallops noted Lungs: Clear to auscultation bilaterally, no rales or crackles noted, no wheezes, good air entry Abdomen: Soft, nontender, nondistended Extremities: Normal to inspection, no edema noted Skin: No rashes noted, no lesions or wounds seen Psych: Euthymic, normal affect Neuro: Cranial nerves 2-12 grossly intact, strength 5/5 upper and lower extremities noted Objective Data Vital Signs Vital Signs: Vital Signs - 24 hr 12/09/21 16:04 12/09/21 16:15 12/09/21 16:33 Temperature 96.6 F L 99 F Pulse Rate 93 Respiratory Rate 16 24 H Blood Pressure 135/67 Pulse Oximetry 98 98 Oxygen Delivery Room Air 12/09/21 18:15 12/09/21 18:57 12/09/21 20:15 Temperature 98.8 F Pulse Rate 81 79 Respiratory Rate 20 16 Blood Pressure 107/67 131/69 Pulse Oximetry 98 97 94 Oxygen Delivery Room Air 12/09/21 20:00 12/09/21 20:00 12/09/21 23:07 Temperature 97.6 F Pulse Rate 90 Respiratory Rate 20 Blood Pressure 135/65 Pulse Oximetry 98 95 Oxygen Delivery Room Air Room Air 12/09/21 23:37 12/10/21 01:04 12/10/21 02:52 Temperature 98.1 F Pulse Rate 79 88 Respiratory Rate 20 Blood Pressure 137/69 Pulse Oximetry 97 96 Oxygen Delivery Autopap 12/10/21 00:
[2021-12-10 11:38] LABS: Anion Gap 8 mmol/L (8-16); Blood Urea Nitrogen 15 mg/dL (9-20); Calcium 8.8 mg/dL (8.4-10.2); Carbon Dioxide 25 mmol/L (22-30); Chloride 87 mmol/L (98-107); Estimated CRCL calculation 96 ml/min; Estimated Glomerular Filt Rate > 60; Glucose 110 mg/dL (65-110); Potassium 4.8 mmol/L (3.4-5.0); Sodium 120 mmol/L (137-145)
[2021-12-10 14:27] LABS: Glucose Point of Care 117 mg/dl (65-105)
[2021-12-10 15:13] LABS: Anion Gap 8 mmol/L (8-16); Blood Urea Nitrogen 17 mg/dL (9-20); Calcium 8.7 mg/dL (8.4-10.2); Carbon Dioxide 26 mmol/L (22-30); Chloride 88 mmol/L (98-107); Estimated CRCL calculation 96 ml/min; Estimated Glomerular Filt Rate > 60; Glucose 102 mg/dL (65-110); Potassium 4.6 mmol/L (3.4-5.0); Sodium 122 mmol/L (137-145)
--- NOTE | 2021-12-10 16:00 | PHAR ---
HOME MEDICATION VERIFIED BY PHARMACY VICTOZA LIRAGLUTIDE INJECTION PEN 6 MG/ML
[2021-12-10] MEDS: TERAZOSIN HCL 1 MG CAPSULE PO (17:34)
[2021-12-10 17:57] LABS: Anion Gap 7 mmol/L (8-16); Blood Urea Nitrogen 15 mg/dL (9-20); Carbon Dioxide 29 mmol/L (22-30); Chloride 86 mmol/L (98-107); Estimated CRCL calculation 88 ml/min; Estimated Glomerular Filt Rate > 60; Glucose 105 mg/dL (65-110); Potassium 4.7 mmol/L (3.4-5.0); Sodium 122 mmol/L (137-145)
[2021-12-10 20:42] LABS: Glucose Point of Care 115 mg/dl (65-105)
[2021-12-10 21:06] LABS: Anion Gap 7 mmol/L (8-16); Blood Urea Nitrogen 15 mg/dL (9-20); Carbon Dioxide 26 mmol/L (22-30); Chloride 88 mmol/L (98-107); Estimated CRCL calculation 96 ml/min; Estimated Glomerular Filt Rate > 60; Glucose 98 mg/dL (65-110); Potassium 4.8 mmol/L (3.4-5.0); Sodium 121 mmol/L (137-145)
[2021-12-11] VITALS (24 sets, daily range): BP systolic 118–150; BP diastolic 54–81; PULSE 65–94; RESP 16–24; TEMP 36.1–37.1; O2SAT 96–100
[2021-12-11 07:50] LABS: Glucose Point of Care 102 mg/dl (65-105)
--- NOTE | 2021-12-11 09:11 | PM.IMPN ---
Progress Note: A&P Assessment and Plan (1) Hyponatremia: Code(s): E87.1 - Hypo-osmolality and hyponatremia Status: Acute Assessment and Plan: Secondary to polydipsia, alcoholism and iatrogenic from multiple medications including lisinopril, spironolactone an SSRI Improving an appropriate rate, change fluid restriction from 2 L to 1800 mL today (2) Hypomagnesemia: Code(s): E83.42 - Hypomagnesemia Status: Acute Assessment and Plan: Resolved (3) Hypertension: Code(s): I10 - Essential (primary) hypertension Status: Acute Assessment and Plan: Pressures were reviewed and they are stable. Monitor closely as hydrochlorothiazide is on hold. Will also hold lisinopril and spironolactone. (4) Alcohol abuse: Code(s): F10.10 - Alcohol abuse, uncomplicated Status: Acute Assessment and Plan: He has cut down his alcohol intake by half over the last 1 month and was encouraged to continue on the journey to stopping alcohol altogether. He denies ever having signs or symptoms of alcohol withdrawal however I am suspicious he may have had a seizure on a couple of occasions as detailed in HPI. Initiate CIWA protocol. Continue thiamine and folic acid supplementation. (5) Gastroesophageal reflux disease: Code(s): K21.9 - Gastro-esophageal reflux disease without esophagitis Status: Acute Assessment and Plan: No acute issues. Continue omeprazole. (6) Obstructive sleep apnea: Code(s): G47.33 - Obstructive sleep apnea (adult) (pediatric) Status: Acute Assessment and Plan: CPAP will be provided for the patient to use while hospitalized. (7) Anxiety: Code(s): F41.9 - Anxiety disorder, unspecified Status: Acute Assessment and Plan: Hold fluoxetine, consider restarting at 20 mg instead of 40 due to his longstanding hyponatremia (8) Postprandial nausea: Code(s): R11.0 - Nausea Status: Acute Assessment and Plan: Suspect patient is having autonomic dysfunction postprandially with hypotensive symptoms of dizziness, lightheadedness and presyncopal feelings, will have nurse check blood pressure after meals and during episodes of patient has any here. If this seems to be the etiology, we can try an abdominal binder and recommend avoiding large meals full of carbohydrates, decreasing alcohol intake and increasing water intake as opposed to other liquids. Would also recommend that he sit from after eating as opposed to standing suddenly. Subjective Date/time seen: 12/11/21 09:11 Interval history: Patient states he feels the same as yesterday. No complaints. He denies chest pain shortness a breath. No nausea vomiting diarrhea. No fevers or chills. Of note, patient does state that for the last few years he occasionally gets a feeling of lightheaded and dizziness if he stands up too quickly after eating. He thought it was his blood sugar, but it happened last night and the nurse stated his blood sugar was actually a little high. Review of Systems Review of Systems: Twelve point review of systems was reviewed and is negative except as noted in the HPI Exam Narrative: General: Patient resting comfortably in bed, no acute distress HEENT: Atraumatic, normocephalic, mucous membranes moist CV: Regular rate and rhythm, S1, S2, no murmurs rubs or gallops noted Lungs: Clear to auscultation bilaterally, no rales or crackles noted, no wheezes, good air entry Abdomen: Soft, nontender, nondistended Extremities: Normal to inspection, no edema noted Skin: No rashes noted, no lesions or wounds seen Psych: Euthymic, normal affect Neuro: Cranial nerves 2-12 grossly intact, strength 5/5 upper and lower extremities noted Objective Data Vital Signs Vital Signs: Vital Signs - 24 hr 12/10/21 10:00 12/10/21 12:00 12/10/21 12:00 Temperature 98 F Pulse Rate 84 63 63 Respiratory Ra
[2021-12-11] MEDS: MULTIVITAMINS THERAPEUTIC TAB (*BKC) 1 TABLET PO (09:23)
[2021-12-11] MEDS: HEPARIN SODIUM 5,000 UNITS/ML VIAL 5000 UNITS SUB-Q ×2 (09:23→20:52)
[2021-12-11] MEDS: POTASSIUM CHLORIDE 20 MEQ TABLET.ER PO ×2 (09:23→18:10)
[2021-12-11] MEDS: carvediloL 25 MG TABLET PO ×2 (09:23→20:49)
[2021-12-11] MEDS: PANTOPRAZOLE 40 MG TABLET PO ×2 (09:24→18:10)
[2021-12-11] MEDS: THIAMINE HCL 100 MG TABLET PO (09:24)
[2021-12-11] MEDS: FOLIC ACID 1 MG TABLET PO (09:24)
[2021-12-11] MEDS: ASPIRIN 81 MG CHEWABLE TABLET PO (09:24)
[2021-12-11] MEDS: HYDROcodone/acetaminophen (*CRX) 5-325 MG TABLET 1 TAB PO ×3 (09:24→18:10)
[2021-12-11 09:34] LABS: Glucose Point of Care 126 mg/dl (65-105)
[2021-12-11 11:49] LABS: Anion Gap 6 mmol/L (8-16); Blood Urea Nitrogen 13 mg/dL (9-20); Calcium 9.1 mg/dL (8.4-10.2); Carbon Dioxide 30 mmol/L (22-30); Chloride 89 mmol/L (98-107); Estimated CRCL calculation 105 ml/min; Estimated Glomerular Filt Rate > 60; Glucose 108 mg/dL (65-110); Sodium 125 mmol/L (137-145)
[2021-12-11] MEDS: TERAZOSIN HCL 1 MG CAPSULE PO (18:11)
[2021-12-11] MEDS: traZODone HCL 50 MG TABLET PO (20:51)
[2021-12-11] MEDS: LORazepam INJ (*CRX) 2 MG/ML VIAL 1 MG IV PUSH (20:57)
[2021-12-11] MEDS: chlordiazePOXIDE (*CRX) 10 MG CAPSULE PO (20:57)
[2021-12-11] MEDS: ZOLPIDEM TARTRATE (*CRX) 5 MG TABLET PO (21:02)
[2021-12-12] VITALS (20 sets, daily range): BP systolic 122–147; BP diastolic 68–94; PULSE 66–100; RESP 14–18; TEMP 36.1–36.9; O2SAT 93–100
[2021-12-12] MEDS: LORazepam INJ (*CRX) 2 MG/ML VIAL 1 MG IV PUSH (03:12)
[2021-12-12 08:39] LABS: Anion Gap 5 mmol/L (8-16); Blood Urea Nitrogen 11 mg/dL (9-20); Calcium 8.5 mg/dL (8.4-10.2); Carbon Dioxide 29 mmol/L (22-30); Chloride 92 mmol/L (98-107); Estimated CRCL calculation 105 ml/min; Estimated Glomerular Filt Rate > 60; Glucose 101 mg/dL (65-110); Potassium 4.5 mmol/L (3.4-5.0); Sodium 126 mmol/L (137-145)
--- NOTE | 2021-12-12 09:26 | PM.IMPN ---
Progress Note: A&P Assessment and Plan (1) Hyponatremia: Code(s): E87.1 - Hypo-osmolality and hyponatremia Status: Acute Assessment and Plan: Secondary to polydipsia, alcoholism and iatrogenic from multiple medications including lisinopril, spironolactone an SSRI Continue holding medications, increase fluid restriction to 1500 mL today (2) Hypomagnesemia: Code(s): E83.42 - Hypomagnesemia Status: Acute Assessment and Plan: Resolved (3) Hypertension: Code(s): I10 - Essential (primary) hypertension Status: Acute Assessment and Plan: Pressures were reviewed and they are stable. Monitor closely as hydrochlorothiazide is on hold. Will also hold lisinopril and spironolactone. (4) Alcohol abuse: Code(s): F10.10 - Alcohol abuse, uncomplicated Status: Acute Assessment and Plan: He has cut down his alcohol intake by half over the last 1 month and was encouraged to continue on the journey to stopping alcohol altogether. He denies ever having signs or symptoms of alcohol withdrawal however I am suspicious he may have had a seizure on a couple of occasions as detailed in HPI. Initiate CIWA protocol. Continue thiamine and folic acid supplementation. (5) Gastroesophageal reflux disease: Code(s): K21.9 - Gastro-esophageal reflux disease without esophagitis Status: Acute Assessment and Plan: No acute issues. Continue omeprazole. (6) Obstructive sleep apnea: Code(s): G47.33 - Obstructive sleep apnea (adult) (pediatric) Status: Acute Assessment and Plan: CPAP will be provided for the patient to use while hospitalized. (7) Anxiety: Code(s): F41.9 - Anxiety disorder, unspecified Status: Acute Assessment and Plan: Hold fluoxetine, consider restarting at 20 mg instead of 40 due to his longstanding hyponatremia (8) Postprandial nausea: Code(s): R11.0 - Nausea Status: Acute Assessment and Plan: Postprandial hypotension: Suspect patient is having autonomic dysfunction postprandially with hypotensive symptoms of dizziness, lightheadedness and presyncopal feelings, will have nurse check blood pressure after meals and during episodes of patient has any here. If this seems to be the etiology, we can try an abdominal binder and recommend avoiding large meals full of carbohydrates, decreasing alcohol intake and increasing water intake as opposed to other liquids. Would also recommend that he sit from after eating as opposed to standing suddenly. Subjective Date/time seen: 12/12/21 09:26 Interval history: Patient resting comfortably in bed without complaints. No fevers chills overnight events noted. No chest pain or shortness of breath. No nausea vomiting diarrhea. Review of Systems Review of Systems: Twelve point review of systems was reviewed and is negative except as noted in the HPI Exam Narrative: General: Patient resting comfortably in bed, no acute distress HEENT: Atraumatic, normocephalic, mucous membranes moist CV: Regular rate and rhythm, S1, S2, no murmurs rubs or gallops noted Lungs: Clear to auscultation bilaterally, no rales or crackles noted, no wheezes, good air entry Abdomen: Soft, nontender, nondistended Extremities: Normal to inspection, no edema noted Skin: No rashes noted, no lesions or wounds seen Psych: Euthymic, normal affect Neuro: Cranial nerves 2-12 grossly intact, strength 5/5 upper and lower extremities noted Objective Data Vital Signs Vital Signs: Vital Signs - 24 hr 12/11/21 09:29 12/11/21 10:01 12/11/21 10:00 Temperature Pulse Rate 92 Pulse Rate [Left Pedal (Dorsalis Pedis) Palpation] Respiratory Rate Blood Pressure 136/70 147/78 H Pulse Oximetry Oxygen Delivery 12/11/21 11:03 12/11/21 12:22 12/11/21 12:00 Temperature 97.2 F L Pulse Rate 75 81 Pulse Rate [Left Pedal (Dorsalis Pedis) Palp
[2021-12-12] MEDS: ASPIRIN 81 MG CHEWABLE TABLET PO (09:36)
[2021-12-12] MEDS: carvediloL 25 MG TABLET PO ×2 (09:37→20:27)
[2021-12-12] MEDS: FOLIC ACID 1 MG TABLET PO (09:39)
[2021-12-12] MEDS: POTASSIUM CHLORIDE 20 MEQ TABLET.ER PO ×2 (09:39→17:43)
[2021-12-12] MEDS: THIAMINE HCL 100 MG TABLET PO (09:40)
[2021-12-12] MEDS: MULTIVITAMINS THERAPEUTIC TAB (*BKC) 1 TABLET PO (09:40)
[2021-12-12] MEDS: PANTOPRAZOLE 40 MG TABLET PO ×2 (09:40→17:44)
[2021-12-12] MEDS: HEPARIN SODIUM 5,000 UNITS/ML VIAL 5000 UNITS SUB-Q ×2 (09:44→20:31)
[2021-12-12] MEDS: HYDROcodone/acetaminophen (*CRX) 5-325 MG TABLET 1 TAB PO ×3 (09:44→17:43)
[2021-12-12] MEDS: TERAZOSIN HCL 1 MG CAPSULE PO (17:44)
[2021-12-12] MEDS: chlordiazePOXIDE (*CRX) 10 MG CAPSULE PO (20:28)
[2021-12-12] MEDS: traZODone HCL 50 MG TABLET PO (20:28)
[2021-12-12] MEDS: ZOLPIDEM TARTRATE (*CRX) 5 MG TABLET PO (20:28)
[2021-12-13] VITALS (12 sets, daily range): BP systolic 128–150; BP diastolic 78–91; PULSE 69–88; RESP 18–24; TEMP 35.8–37.1; O2SAT 97–100
[2021-12-13 06:44] LABS: Anion Gap 3 mmol/L (8-16); Blood Urea Nitrogen 11 mg/dL (9-20); Calcium 8.8 mg/dL (8.4-10.2); Carbon Dioxide 30 mmol/L (22-30); Chloride 95 mmol/L (98-107); Estimated CRCL calculation 106 ml/min; Estimated Glomerular Filt Rate > 60; Glucose 103 mg/dL (65-110); Potassium 4.5 mmol/L (3.4-5.0); Sodium 128 mmol/L (137-145)
[2021-12-13] MEDS: FOLIC ACID 1 MG TABLET PO (09:20)
[2021-12-13] MEDS: ASPIRIN 81 MG CHEWABLE TABLET PO (09:20)
[2021-12-13] MEDS: THIAMINE HCL 100 MG TABLET PO (09:20)
[2021-12-13] MEDS: POTASSIUM CHLORIDE 20 MEQ TABLET.ER PO ×2 (09:20→17:10)
[2021-12-13] MEDS: carvediloL 25 MG TABLET PO ×2 (09:20→20:15)
[2021-12-13] MEDS: MULTIVITAMINS THERAPEUTIC TAB (*BKC) 1 TABLET PO (09:20)
[2021-12-13] MEDS: HYDROcodone/acetaminophen (*CRX) 5-325 MG TABLET 1 TAB PO ×3 (09:20→17:11)
[2021-12-13 10:20] LABS: Osmolality, Urine 519 mOsm/kg (50-1200)
[2021-12-13] MEDS: HEPARIN SODIUM 5,000 UNITS/ML VIAL 5000 UNITS SUB-Q ×2 (12:32→20:15)
[2021-12-13] MEDS: PANTOPRAZOLE 40 MG TABLET PO ×2 (12:32→17:11)
--- NOTE | 2021-12-13 12:41 | PM.IMPN ---
Progress Note: A&P Assessment and Plan (1) Hyponatremia: Code(s): E87.1 - Hypo-osmolality and hyponatremia Status: Acute Assessment and Plan: Secondary to polydipsia, alcoholism and iatrogenic from multiple medications including lisinopril, spironolactone an SSRI Continue holding medications, increase fluid restriction to 2000 mL today (2) Hypomagnesemia: Code(s): E83.42 - Hypomagnesemia Status: Acute Assessment and Plan: Resolved (3) Hypertension: Code(s): I10 - Essential (primary) hypertension Status: Acute Assessment and Plan: Pressures were reviewed and they are stable. Monitor closely as hydrochlorothiazide is on hold. Will also hold lisinopril and spironolactone. (4) Alcohol abuse: Code(s): F10.10 - Alcohol abuse, uncomplicated Status: Acute Assessment and Plan: No concern for withdrawal. Maybe contributing to his hyponatremia. (5) Gastroesophageal reflux disease: Code(s): K21.9 - Gastro-esophageal reflux disease without esophagitis Status: Acute Assessment and Plan: No acute issues. Continue omeprazole. (6) Obstructive sleep apnea: Code(s): G47.33 - Obstructive sleep apnea (adult) (pediatric) Status: Acute Assessment and Plan: CPAP will be provided for the patient to use while hospitalized. (7) Anxiety: Code(s): F41.9 - Anxiety disorder, unspecified Status: Acute Assessment and Plan: Hold fluoxetine, consider restarting at 20 mg instead of 40 due to his longstanding hyponatremia (8) Postprandial nausea: Code(s): R11.0 - Nausea Status: Acute Assessment and Plan: No issues today. Monitor. Subjective Date/time seen: 12/13/21 12:41 Doing okay, feeling better. No new complaints Exam Narrative: General: Patient resting comfortably in bed, no acute distress HEENT: Atraumatic, normocephalic, mucous membranes moist CV: Regular rate and rhythm, S1, S2, no murmurs rubs or gallops noted Lungs: Clear to auscultation bilaterally, no rales or crackles noted, no wheezes, good air entry Abdomen: Soft, nontender, nondistended Extremities: Normal to inspection, no edema noted Skin: No rashes noted, no lesions or wounds seen Psych: Euthymic, normal affect Neuro: Cranial nerves 2-12 grossly intact, strength 5/5 upper and lower extremities noted Objective Data Vital Signs Vital Signs: Vital Signs - 24 hr 12/12/21 14:00 12/12/21 16:30 12/12/21 16:31 Temperature 98.2 F Pulse Rate 97 83 78 Pulse Rate [Left Pedal (Dorsalis Pedis) Palpation] Respiratory Rate 18 Blood Pressure 147/76 H Pulse Oximetry 100 Oxygen Delivery Fraction of Inspired Oxygen 12/12/21 20:27 12/12/21 20:00 12/12/21 20:00 Temperature 98.0 F Pulse Rate 80 74 Pulse Rate [Left Pedal (Dorsalis Pedis) Palpation] Respiratory Rate 14 Blood Pressure 139/94 H Pulse Oximetry 99 Oxygen Delivery Room Air Fraction of Inspired Oxygen 12/12/21 22:24 12/12/21 22:25 12/12/21 23:42 Temperature 97.4 F L Pulse Rate 79 72 Pulse Rate [Left Pedal (Dorsalis Pedis) Palpation] Respiratory Rate 14 Blood Pressure 147/82 H Pulse Oximetry 98 98 100 Oxygen Delivery Autopap CPAP Fraction of Inspired Oxygen 12/13/21 02:35 12/13/21 08:00 12/13/21 09:20 Temperature 97 F L Pulse Rate 81 77 80 Pulse Rate [Left Pedal (Dorsalis Pedis) Palpation] Respiratory Rate 20 Blood Pressure 150/91 H Pulse Oximetry 98 98 Oxygen Delivery Autopap Fraction of Inspired Oxygen 12/13/21 09:33 12/13/21 09:33 12/13/21 12:00 Temperature 98.7 F Pulse Rate 80 Pulse Rate [Left Pedal (Dorsalis Pedis) Palpation] 80 Respiratory Rate 24 H Blood Pressure 148/81 H Pulse Oximetry 100 Oxygen Delivery Room Air Fraction of Inspired Oxygen Intake/Output Intake/Output: Intake & Output 12/10/21 12/11/2112/12
--- NOTE | 2021-12-13 14:28 | PC.NURSE ---
pt med/surg status-Transferred pt to room 310 - report given to Lexus RN- personal belongings with pt
--- NOTE | 2021-12-13 16:38 | PC.NURSE ---
pt refusing bed alarms after being educated on our safety precautions. pt stated that he was off alarms while down in the IMU. Pt is currently not on alarms.
[2021-12-13] MEDS: TERAZOSIN HCL 1 MG CAPSULE PO (17:10)
[2021-12-13] MEDS: traZODone HCL 50 MG TABLET PO (20:16)
[2021-12-13] MEDS: ZOLPIDEM TARTRATE (*CRX) 5 MG TABLET PO (20:16)
[2021-12-14 02:36] VITALS: PULSE 82; O2SAT 96
[2021-12-14 05:47] VITALS: BP 130/60; PULSE 70; RESP 18; TEMP 35.8; O2SAT 96
[2021-12-14 06:16] LABS: Anion Gap 5 mmol/L (8-16); Blood Urea Nitrogen 11 mg/dL (9-20); Calcium 8.5 mg/dL (8.4-10.2); Carbon Dioxide 27 mmol/L (22-30); Chloride 98 mmol/L (98-107); Estimated CRCL calculation 106 ml/min; Estimated Glomerular Filt Rate > 60; Glucose 95 mg/dL (65-110); Potassium 4.2 mmol/L (3.4-5.0); Sodium 130 mmol/L (137-145)
[2021-12-14 08:37] VITALS: PULSE 70
[2021-12-14] MEDS: ASPIRIN 81 MG CHEWABLE TABLET PO (08:37)
[2021-12-14] MEDS: FOLIC ACID 1 MG TABLET PO (08:37)
[2021-12-14] MEDS: HYDROcodone/acetaminophen (*CRX) 5-325 MG TABLET 1 TAB PO ×2 (08:37→13:12)
[2021-12-14] MEDS: POTASSIUM CHLORIDE 20 MEQ TABLET.ER PO (08:37)
[2021-12-14] MEDS: carvediloL 25 MG TABLET PO (08:37)
[2021-12-14] MEDS: MULTIVITAMINS THERAPEUTIC TAB (*BKC) 1 TABLET PO (08:37)
[2021-12-14] MEDS: THIAMINE HCL 100 MG TABLET PO (08:37)
[2021-12-14] MEDS: HEPARIN SODIUM 5,000 UNITS/ML VIAL 5000 UNITS SUB-Q (08:38)
[2021-12-14] MEDS: PANTOPRAZOLE 40 MG TABLET PO (08:38)
--- NOTE | 2021-12-14 11:19 | PM.DS ---
DS: Admitting Diagnosis Discharge Date December 14, 2009 Admitting Diagnosis Hyponatremia DS: Discharge Diagnosis Discharge Diagnosis (1) Hyponatremia: Code(s): E87.1 - Hypo-osmolality and hyponatremia Status: Acute Assessment and Plan: Sodium level has improved. This is likely related to alcohol intake, hydrochlorothiazide and decreased sodium intake and increased water intake. Now resolved, no neurologic complaints. Lengthy discussion with patient about medications and also increasing p.o. intake. (2) Hypomagnesemia: Code(s): E83.42 - Hypomagnesemia Status: Acute Assessment and Plan: Resolved (3) Hypertension: Code(s): I10 - Essential (primary) hypertension Status: Acute Assessment and Plan: Adjusted medications on this hospitalization. (4) Alcohol abuse: Code(s): F10.10 - Alcohol abuse, uncomplicated Status: Acute Assessment and Plan: No concern for withdrawal. Maybe contributing to his hyponatremia. (5) Gastroesophageal reflux disease: Code(s): K21.9 - Gastro-esophageal reflux disease without esophagitis Status: Acute Assessment and Plan: No acute issues. Continue omeprazole. (6) Obstructive sleep apnea: Code(s): G47.33 - Obstructive sleep apnea (adult) (pediatric) Status: Acute Assessment and Plan: CPAP will be provided for the patient to use while hospitalized. (7) Anxiety: Code(s): F41.9 - Anxiety disorder, unspecified Status: Acute Assessment and Plan: Hold fluoxetine, consider restarting at 20 mg instead of 40 due to his longstanding hyponatremia (8) Postprandial nausea: Code(s): R11.0 - Nausea Status: Acute Assessment and Plan: No issues today. Monitor. DS: Summary Hospital Course Hospital Course: Patient has history of alcohol use daily. Came in with hyponatremia. Likely secondary decreased p.o. intake, alcohol intake and also hydrochlorothiazide. His hydrochlorothiazide will be stopped. We increased his beta-annmarie for blood pressure control. Otherwise his sodium was 130. No neurologic symptoms throughout the entire hospitalization. Time Spent with Patient Time attestation: Total time spent providing and/or coordinating discharge services: Exam Narrative: General: Patient resting comfortably in bed, no acute distress HEENT: Atraumatic, normocephalic, mucous membranes moist CV: Regular rate and rhythm, S1, S2, no murmurs rubs or gallops noted Lungs: Clear to auscultation bilaterally, no rales or crackles noted, no wheezes, good air entry Abdomen: Soft, nontender, nondistended Extremities: Normal to inspection, no edema noted Skin: No rashes noted, no lesions or wounds seen Psych: Euthymic, normal affect Neuro: Cranial nerves 2-12 grossly intact, strength 5/5 upper and lower extremities noted DS: Data Data Completed and Pending Labs on day of discharge: Labs from last 24 hours 12/14/21 05:34 Sodium 130 L Potassium 4.2 Chloride 98 Carbon Dioxide 27 Anion Gap 5 L BUN 11 Creatinine 1.00 Estim Creat Clear Calc 106 Estimated GFR > 60 Glucose 95 Calcium 8.5 Discharge Plan Discharge Attending physician on discharge: Connor Nielsen Discharging Clinician: Connor Nielsen Patient Disposition: Home, Self-Care Activity: no preference Diet: as tolerated Patient Instructions: Antibiotic Form, Pain Management in Older Adults (DC), Hyponatremia (DC), Abuse of Alcohol (DC) Stand Alone Forms: General Discharge Information Follow-up/Referrals: Ricardo,KATHY Aguayo [Primary Care Provider] - Discharge Medications: New carvedilol [Coreg] 25 mg Tablet 25 mg PO Q12HR 30 Days Qty: 60 0RF Continued aspirin 81 mg tablet,chewable 81 mg PO DAILY fluoxetine 20 mg capsule 40 mg PO DAILY Rx Instructions: Takes 2 capsules daily Vi
[2021-12-14 12:00] VITALS: PULSE 88
[2021-12-14 14:23] VITALS: BP 125/67; PULSE 89; RESP 20; TEMP 36.1; O2SAT 98
== END 2021-12-14 15:55 | disposition home or self-care (01) | DRG 641 ==
LOC: ANHED 17:58 → ANHIMU 18:22 → ANH3MEDSUR 12-13 23:46 → ANHIMU 12-15 08:59
PROVIDERS: Chiropractor; Physician Assistant; Admitting Provider Internal Medicine; Emergency Provider Emergency Medicine; PCP Physician Assistant; Visit Provider Student in an Organized Health Care Education/Training Program
DX: E87.1 Hypo-osmolality and hyponatremia (principal); Z68.42 Body mass index [BMI] 45.0-49.9, adult; E83.42 Hypomagnesemia; R63.1 Polydipsia; T50.2X5A Adverse effect of carbonic-anhydrase inhibitors, benzothiadiazides and other diuretics, initial encounter; E66.01 Morbid (severe) obesity due to excess calories; F41.9 Anxiety disorder, unspecified; F10.10 Alcohol abuse, uncomplicated; G47.33 Obstructive sleep apnea (adult) (pediatric); G47.00 Insomnia, unspecified; I10 Essential (primary) hypertension; K21.9 Gastro-esophageal reflux disease without esophagitis; M19.90 Unspecified osteoarthritis, unspecified site; R11.0 Nausea; Z79.899 Other long term (current) drug therapy; Z79.82 Long term (current) use of aspirin; Z90.49 Acquired absence of other specified parts of digestive tract
CPT/HCPCS: 36415; 71045; 80048; 80053; 80307; 81001; 82436; 82570; 82948; 83735; 83880; 83930; 83935; 84133; 84300; 84484; 85025; 85610; 85730; 93005; 96365; 96375; 99285; A9270; G0378; J1644; J2060; J3411; J3475

== ENCOUNTER 2022-02-16 08:45 | Outpatient (CLI) | payer OTHER, MEDICAID, SELFPAY ==
--- NOTE | ~2022-02-16 | XR_ITS ---
EXAMINATION: XR lumbar spine min 4V DATE: 02/16/2022 09:15 INDICATION: Low back pain TECHNIQUE: Anteroposterior and lateral in neutral, flexion and extension views of the lumbar spine we re obtained. COMPARISON: 01/27/2020 there FINDINGS: There is an age-indeterminate compression fracture of L1 with approximately 50% loss of ant erior vertebral body height. The remaining lumbar vertebral bodies are normal. Alignment is maintaine d. There is no laxity with flexion or extension. There is mild loss of intervertebral disc space heig ht at L5-S1. IMPRESSION: 1. Age-indeterminate compression fracture of L1 with approximately 50% anterior vertebral body height loss. 2. Mild lumbar spondylosis. Reviewed, dictated and finalized at location A.
--- NOTE | ~2022-02-16 | MR_ITS ---
EXAMINATION: MR brain/brain stem wo con DATE: 02/16/2022 10:11 INDICATION: Left-sided weakness TECHNIQUE: Magnetic resonance imaging (MRI) of the brain and brainstem was performed without intraven ous contrast. Sequences included sagittal and axial T1-weighted SE, axial diffusion-weighted FS SE, a xial T2*-weighted GRE, axial T2-weighted FLAIR Propeller, and axial T2-weighted Propeller. Apparent d iffusion coefficient (ADC) maps were created. COMPARISON: CTA brain dated 09/04/2019. FINDINGS: Normal brain parenchymal volume for age. There are scattered mild periventricular and subco rtical white matter changes, most likely related to small vessel ischemic disease (microangiopathy). No acute infarction, hemorrhage, mass or mass effect. Structures of the posterior fossa including the seventh/8th cranial nerve complexes are normal. Orbits are symmetric without disconjugate gaze. Flow voids in the major intracerebral arteries are within normal limits. No ventriculomegaly or midline s hift. Midline sagittal images demonstrate a normal corpus callosum and craniovertebral junction. IMPRESSION: 1. No acute intracranial abnormality. 2: Chronic age-related findings. Reviewed, dictated and finalized at location B.
--- NOTE | ~2022-02-16 | MR_ITS ---
EXAMINATION: MR cervical spine wo con DATE: 02/16/2022 10:11 INDICATION: Neck pain. TECHNIQUE: Magnetic resonance imaging (MRI) of the cervical spine was performed without intravenous c ontrast. Sequences included sagittal T2-weighted FSE, sagittal T2-weighted FS FSE, sagittal T1-weight ed FSE, axial MERGE, and axial T2-weighted FSE. COMPARISON: Cervical spine MRI 03/22/2017 FINDINGS: Bone alignment is normal. Vertebral body heights and intervertebral disc heights are normal . The spinal cord signal intensity is normal. The following disc levels are specifically discussed: C2-C3: The disc does not extend beyond the endplate margin. There is no uncovertebral joint osteoarth ritis. There is mild bilateral facet joint osteoarthritis. There is no neural foraminal stenosis. The re is no central canal stenosis. C3-C4: The disc does not extend beyond the endplate margin. There is mild left uncovertebral joint os teoarthritis. There is mild bilateral facet joint osteoarthritis. There is no neural foraminal stenos is. There is no central canal stenosis. C4-C5: The disc does not extend beyond the endplate margin. There is mild left uncovertebral joint os teoarthritis. There is mild bilateral facet joint osteoarthritis. There is no neural foraminal stenos is. There is no central canal stenosis. C5-C6: The disc does not extend beyond the endplate margin. There is no uncovertebral joint osteoarth ritis. There is no facet joint osteoarthritis. There is no neural foraminal stenosis. There is no carroll tral canal stenosis. C6-C7: The disc does not extend beyond the endplate margin. There is no uncovertebral joint osteoarth ritis. There is no facet joint osteoarthritis. There is no neural foraminal stenosis. There is no carroll tral canal stenosis. C7-T1: The disc does not extend beyond the endplate margin. There is no uncovertebral joint osteoarth ritis. There is mild bilateral facet joint osteoarthritis. There is no neural foraminal stenosis. The re is no central canal stenosis. IMPRESSION: 1. Mild polyarticular osteoarthritis. Reviewed, dictated and finalized at location A.
== END 2022-02-16 08:46 | disposition home or self-care (01) ==
PROVIDERS: PCP Physician Assistant; Visit Provider Neurological Surgery
DX: M47.813 Spondylosis without myelopathy or radiculopathy, cervicothoracic region (principal); M48.03 Spinal stenosis, cervicothoracic region; R53.1 Weakness; M47.817 Spondylosis without myelopathy or radiculopathy, lumbosacral region; M47.815 Spondylosis without myelopathy or radiculopathy, thoracolumbar region; M48.05 Spinal stenosis, thoracolumbar region
CPT/HCPCS: 70551; 72110; 72141

== ENCOUNTER 2022-03-09 10:20 | Outpatient (CLI) | payer OTHER, MEDICAID, SELFPAY ==
--- NOTE | ~2022-03-09 | MR_ITS ---
EXAMINATION: MR chest wo/w con DATE: 03/09/2022 11:33 INDICATION: Concern for left brachial plexopathy with left-sided neck, shoulder and arm pain, left ar m tremors and weakness of the left arm and hand. TECHNIQUE: Magnetic resonance imaging (MRI) of the chest centered on and oriented with respect to the left brachial plexus was performed without intravenous contrast. Study was ordered as with and witho ut however patient terminated the study prior to completion of the noncontrast portion of the examina tion and prior to administration of intravenous contrast. Sequences included large [id number] axi al T1-weighted FSE and coronal T2-weighted FS FSE including the bilateral brachial plexus and smaller field of view coronal T1-weighted FSE, T2-weighted FS FSE and fluid sensitive FSE STIR and sagittal T1-weighted of the left brachial plexus. COMPARISON: MRI cervical spine dated 02/16/2022 FINDINGS: Normal symmetric appearance to the left and right brachial plexus on the larger field of view images with no abnormal thickening or signal on either the left or right. No pathologically enlarged cervica l, supraclavicular, axillary or superior mediastinal lymphadenopathy. Cervical disc spaces appear nor mal with no extension to just beyond the endplate margins and with widely patent central canal. Multi level mild bilateral cervical facet osteoarthritis without evident significant neural foraminal steno sis. No cervical ribs were other impinging masses identified. No evident asymmetric muscle atrophy of the visualized portions of the bilateral shoulder girdles. Visualized bone marrow signal is normal t hroughout. IMPRESSION: 1. Unremarkable noncontrast MRI of the left brachial plexus. Patient terminated study prior to contra st administration. Reviewed, dictated and finalized at location A. IMPRESSION: 1. Unremarkable noncontrast MRI of the left brachial plexus. Patient terminated study prior to contrast administration.
== END 2022-03-09 10:21 | disposition home or self-care (01) ==
PROVIDERS: PCP Physician Assistant; Visit Provider Student in an Organized Health Care Education/Training Program
DX: R53.1 Weakness (principal); M54.2 Cervicalgia
CPT/HCPCS: 71552

== ENCOUNTER 2022-04-09 10:18 | Outpatient (CLI) | payer OTHER, MEDICARE, MEDICAID, SELFPAY ==
[2022-04-09 10:56] LABS: Alanine Aminotransferase 33 U/L (6-50); Albumin Level 4.6 g/dL (3.5-5.1); Alkaline Phosphatase 63 U/L (38-126); Aspartate Amino Transferase 27 U/L (17-59); Bilirubin,Total 0.4 mg/dL (0.2-1.3)
[2022-04-09 10:57] LABS: Anion Gap 10 mmol/L (8-16); Blood Urea Nitrogen 13 mg/dL (9-20); Calcium 9.7 mg/dL (8.4-10.2); Carbon Dioxide 28 mmol/L (22-30); Chloride 95 mmol/L (98-107); Estimated Glomerular Filt Rate > 60; Glucose 98 mg/dL (65-110); Potassium 4.7 mmol/L (3.4-5.0); Sodium 133 mmol/L (137-145)
[2022-04-09 11:13] LABS: Prothrombin Time 13.2 Seconds (11.1-14.7)
[2022-04-25 01:11] LABS: GM-1 Ab (IgG) <1:800 titer (<1:800); GM-1 Ab (IgM) <1:800 titer (<1:800)
== END 2022-04-09 10:19 | disposition home or self-care (01) ==
PROVIDERS: Anesthesiology; Surgery; PCP Physician Assistant; Visit Provider Student in an Organized Health Care Education/Training Program
DX: R53.1 Weakness (principal); Z79.899 Other long term (current) drug therapy; J43.2 Centrilobular emphysema
CPT/HCPCS: 36415; 80048; 80076; 83520; 85610; 86334; 86335; 86850; 86900; 86901

== ENCOUNTER 2022-04-10 00:38 | Day surgery (SDC) | payer OTHER, MEDICARE, MEDICAID, SELFPAY ==
[2022-04-05 09:49] VITALS: BMI 47.3
--- NOTE | 2022-04-05 10:01 | PC.NURSE ---
Report to the Outpatient Waiting Room, entrance under the green pavilion located off [facility], at time 11:00 on date 04/10/22. OR Time: 1:00. Time changes happen often and if your time is changed the preop area will call you the afternoon before. - You and your visitor will be asked to self-screen and do not enter if you have any COVID symptoms. - Only one visitor and NO children visitors are allowed at this time. - The patient visitor is requested to leave or wait in car when not with patient due to restrictions. - A mask is required within the hospital. Patients may have clear liquids (water, carbonated beverages, clear teas, apple juice) until 3 hours prior to surgery (10:00) with a maximum of 20 ounces. - No food from midnight until time of surgery Take the following medications with a SIP of water the morning of surgery: CARVEDILOL, FLUOXETINE, PAIN PILL Medications to discontinue per physician: VITAMINS/SUPPLEMENTS Date to take last dose: 04/06/22 Please no make-up, nail maori, hairspray, perfume, deodorant, or body powder the day of surgery. No jewelry (including any body piercings) or valuables the day of surgery, leave them at home. Please take a shower or bath the night before, or the morning of, surgery with an antibacterial soap (HIBICLENS). Wear comfortable, loose fitting clothing. - Jewelry must be removed prior to entering the operating room. Rings and piercings that are not removed may be cut off. - The hospital will not accept responsibility for valuables. - Please leave all valuables, including medications, at home the day of surgery. If you are going home after surgery, a licensed courtesy car driver must drive you home. - NO public transportation without another adult. - We recommend that an adult stay with you for 24 hours following discharge. - We also recommend that you do not drive, make important decision, drink alcoholic beverages, or take any drugs that were not prescribed by your health care provider for at least 24 hours after your discharge time. Follow any additional instructions given to you from your surgeon. If you or anyone in your household have experienced Covid symptoms in the past week, please notify your surgeon or the nurse liaison at the phone number below for possible testing. Telephone instructions given to PT - DESIREE SAUNDERS and asked if any additional questions and then verbalized understanding. Patient advised to call surgeon office or pre surgery nurse liaison [phone] if any additional questions.
[2022-04-10] VITALS (11 sets, daily range): BP systolic 125–150; BP diastolic 78–92; PULSE 73–92; RESP 14–20; TEMP 36.3–36.7; O2SAT 93–100
--- NOTE | 2022-04-10 11:59 | WPDANESEPPF ---
Anes - Initial Pre Proc Eval Procedure: Operation Date: 04/10/22 13:00 Proposed Procedures p Laparoscopic Incisional Hernia Repair with Mesh Davinci Assisted - Medardo Lindquist DO Date/Time: 04/10/22 11:59 Surgeon: Medardo Lindquist DO Pre Op Diagnosis: incisional hernia Patient Data Age: 57 Gender: M Height: 1.78 m Weight: 152.9 kg Last Vital Signs Temp 36.7 C 04/10/22 11:42 Pulse 73 04/10/22 11:42 Resp 20 04/10/22 11:42 BP 150/88 H 04/10/22 11:42 Pulse Ox 100 04/10/22 11:42 O2 Del Method Room Air 04/10/22 11:42 Allergies Allergy/AdvReac Type Severity Reaction Status Date / Time peanut Allergy Unknown Vomiting Verified 04/10/22 11:44 Home Medications Medication Instructions Recorded Confirmed Type fluoxetine 20 mg capsule 40 mg PO DAILY 06/18/19 04/10/22 History Vitamin B-1 1 tablet PO DAILY 12/16/19 04/10/22 History aspirin 81 mg chewable tablet 81 mg PO DAILY 06/01/21 04/10/22 History folic acid 1 mg tablet 1 mg PO DAILY 12/09/21 04/10/22 History liraglutide 0.6 mg/0.1 mL (18 mg/3 1.8 mg subcut HS 12/09/21 04/10/22 History mL) subcutaneous pen injector (Victoza 3-Roland) lisinopril 20 mg tablet 1 tablet PO BID 12/09/21 04/10/22 History multivitamin 1 tablet PO DAILY 12/09/21 04/10/22 History potassium chloride 20 mEq 1 tablet PO BID 12/09/21 04/10/22 History tablet,extended release(part/cryst) (Klor-Con M) spironolactone 25 mg tablet 1 tablet PO DAILY 12/09/21 04/10/22 History terazosin 2 mg capsule 1 cap PO QPM 12/09/21 04/10/22 History trazodone 50 mg tablet 1 tablet PO QPM 12/09/21 04/10/22 History zolpidem 5 mg tablet 1 tablet PO QPM 12/09/21 04/10/22 History carvedilol 25 mg tablet (Coreg) 25 mg PO Q12HR 30 days #60 tabs 12/14/21 04/10/22 Rx omeprazole 40 mg capsule,delayed 40 mg PO DAILY #90 caps 03/08/22 04/10/22 Rx release hydrocodone 7.5 mg-acetaminophen 1 tablet PO QID 04/05/22 04/10/22 History 325 mg tablet testosterone enanthate 75 mg/0.5 75 mg subcut WEEKLY 04/05/22 04/10/22 History mL subcutaneous auto-injector (Xyosted) Patient hx anesthesia problems: none Family hx anesthesia problems: none Results Review: All pre-operative results and documents have been reviewed as part of the pre-operative evaluation. FORMERLY [facility], [facility] Past Medical History Medical History Alcohol abuse Anxiety Arthritis Dysphagia Essential hypertension Food impaction of esophagus (07/08/21) Gastroesophageal reflux disease Hypertension Insomnia Obstructive sleep apnea Umbilical hernia Surgical History Surgical History History of appendectomy (03/2010) History of elbow surgery (12/25/19) Cubital tunnel decompression. History of esophagogastroduodenoscopy (07/08/21) Reflux esophagitis, gastritis, duodenitis. Family History Family History Mother Family history of elevated blood lipids Diabetes mellitus Family history of obesity Uterine cancer Neuralgia Father Family history of cardiovascular disease Social History Social History Social History: Surrogate decision maker: Shanae Oliva, significant other. Code status: Full code. Smoking status: Never smoker Second hand tobacco smoke exposure: No Alcohol intake: current Drinks per week: 35 Alcohol use details: AT LEAST 5 BEERS/DAY Substance use: never Substance use type: does not use Living arrangements: with family Additional living arrangements comments: Lives with mother and girlfriend. Spiritual care concerns: No Anes - Eval Final PreProcedure Day of Procedure 04/10/22 11:59 Patient weight: morbidly obese Heart: regular rate and rhythm Lungs: clear to auscultation Airway: Mallampati scale class III Neurological: alert and oriented Last oral intake
[2022-04-10] MEDS: ACETAMINOPHEN 500 MG TABLET 1000 MG PO (12:13)
[2022-04-10] MEDS: KETOROLAC 15 MG/ML VIAL (*BKC) IV PUSH (12:23)
[2022-04-10] MEDS: LACTATED RINGERS 1,000 ML 30 ML IV CONT ×2 (12:23→15:10)
--- NOTE | 2022-04-10 12:27 | WPDHPUPDATE1 ---
History and Physical Update Update Date/Time: 04/10/22 12:27 History and Physical has been reviewed, including an updated exam of the patient. There are NO changes in the patient's condition. Risks, benefits, and alternatives have been discussed and questions answered. Patient agrees to proceed with procedure.
[2022-04-10] MEDS: ceFAZolin 3 GM/D5W 100 ML 100 ML IVPB (12:58)
--- NOTE | 2022-04-10 14:41 | W.PM.PROC2 ---
Procedure Note - Detailed Date of Procedure 04/10/22 Pre-op Diagnosis incisional hernia Post-op Diagnosis Same Procedure Performed Laparoscopic Incisional Hernia Repair with Mesh, da Nohemy assisted Surgeon Medardo Lindquist DO Anesthesia General and Local (Exparel) Indications This is a 57-year-old man who presented with a bulge at his umbilicus that and had noticed for the last couple years. He states that the bulge does protrude and cause significant pain. It is reducible. He has a prior history of a laparoscopic appendectomy and reports that he did not have a hernia prior to going in for with the surgery. The hernia does appear to be at a scar from previous laparoscopic appendectomy. Discussions were made with the patient about treatment options and decision was made to proceed with laparoscopic incisional hernia repair with mesh da Nohemy assist. Findings Laparoscopic incisional hernia repair was performed. The patient was found to have a 2 cm hernia right at his umbilicus at a scar from previous laparoscopic appendectomy. The hernia sac was excised and sent to the lab for pathology. A robotic intraperitoneal onlay mesh technique was utilized. The fascia was reapproximated using a 1-Stratafix running absorbable suture. An [address] mesh was then placed and secured around circumference using 2 0 V lock running absorbable sutures. Description of Procedure Procedure as well as risks, benefits, and alternatives were discussed with the patient. Written consent was obtained and placed in chart prior to procedure. Patient was brought back to surgical suite. He was placed supine on operating table. Time-out was done to confirm patient and procedure. He was then intubated by the anesthesia department. A bump was placed under his left hip, and the bed was flexed slightly to extend the space between his costal margin and iliac crest. His abdomen was prepped and draped in sterile fashion using chlorhexidine prep. A 5 millimeter incision was made in the left upper quadrant, and a 5 millimeter Optiview trocar was advanced through the abdominal layers under direct visualization. Once inside the abdominal cavity, carbon dioxide insufflation was used to create a pneumoperitoneum. His abdomen was inspected. An 8 millimeter incision was made in the left lower quadrant, and an 8 millimeter robotic trocar was placed under direct visualization. Another 8 millimeter incision was made in the left lateral abdomen, and an 8 millimeter robotic trocar was placed under direct visualization. Exparel was infiltrated along the lateral abdominal hedrick to perform a transversus abdominis plane block bilaterally. The 5 millimeter port was removed, the incision was extended to 12 millimeters, and a 12 millimeter air seal port was placed under direct visualization. A Henry-East cone was also used to place an 0-Vicryl simple interrupted suture at this trocar site. The robotic arms were brought up to the patient's bedside and secured to the ports. The camera and instruments were inserted, and I then moved over to the robotic console and took control of the camera and instruments. After careful thorough inspection of the abdominal cavity, I began my dissection at the hernia. The hernia sac was excised and the fascia was cleared around the hernia defect. I then measured the hernia size. The hernia measured 2 cm wide. The fascia was closed using an 1-Stratafix running suture in a vertical fashion. An [address] mesh was then placed within the abdominal cavity. This was oriented vertically with the mesh centered on the hernia defect. The mesh was then secured circumferentially to the abdominal wall using 2 0 V lock running absorbable suture. The repair was inspected, and one final inspection was made around the abdominal cavity. The robotic instruments were then removed, and the robotic arms were disengaged from the trocars. The ports were
[2022-04-10] MEDS: fentaNYL CITRATE INJ (*CRX) 100 MCG/2 ML VIAL 25 MCG IV PUSH ×8 (15:02→15:54)
[2022-04-10] MEDS: HYDROmorphone HCL INJ (*CRX) 1 MG/ML SYR IV PUSH (16:09)
[2022-04-10] MEDS: oxyCODONE HCL (*CRX) 5 MG TAB IR PO (16:48)
== END 2022-04-10 17:35 | disposition home or self-care (01) ==
PROVIDERS: PCP Physician Assistant; Visit Provider Surgery
PROC: (CPT 49654; principal; 2022-04-10 13:00)
DX: K43.2 Incisional hernia without obstruction or gangrene (principal); I10 Essential (primary) hypertension; G47.33 Obstructive sleep apnea (adult) (pediatric); F41.9 Anxiety disorder, unspecified; E66.01 Morbid (severe) obesity due to excess calories; Z68.42 Body mass index [BMI] 45.0-49.9, adult; Z79.82 Long term (current) use of aspirin; Z79.899 Other long term (current) drug therapy
CPT/HCPCS: 49654; S2900; 88302; A9270; C1781; C9290; J0330; J0690; J1100; J1170; J1885; J2250; J2405; J2704; J2710; J3010; J7120

== ENCOUNTER 2022-04-17 09:09 | Outpatient (CLI) | payer OTHER, MEDICARE, MEDICAID, SELFPAY ==
--- NOTE | 2022-04-17 11:30 | NEURO_ITS ---
Impression: # Nondiabetic with significant pitting edema complains of left sided weakness. # Left ulnar neuropathy. # No Carpal Tunnel Syndrome. # Absent left lower extremity sensory responses. # Needle/EMG exam revealed no active neurogenic changes but decreased motor unit potentials were noted. Nerve Conduction Studies Anti Sensory Summary Table Stim Site NR Peak (ms) P-T Amp (?V) Site1 Site2 Delta-P (ms) Dist (cm) Ryan (m/s) Left Median Anti Sensory (2-3nd Digit) Wrist 3.0 52.0 Wrist 2-3nd Digit 3.0 14.0 47 Wrist 3.0 45.6 Wrist 2-3nd Digit 3.0 14.0 47 Left Radial Anti Sensory (Base 1st Digit) Wrist 2.0 30.6 Wrist Base 1st Digit 2.0 0.0 Left Sup Fibular Anti Sensory (Ant Lat Mall) NO RESPONSE 14 cm NR 14 cm Ant Lat Mall 16.0 Left Sural Anti Sensory (Lat Mall) NO RESPONSE Calf NR Calf Lat Mall 16.0 Left Ulnar Anti Sensory (5th Digit) Wrist 2.4 28.6 Wrist 5th Digit 2.4 14.0 58 Motor Summary Table Stim Site NR Onset (ms) O-P Amp (mV) Site1 Site2 Delta-0 (ms) Dist (cm) Ryan (m/s) Left Median Motor (Abd Poll Brev) Wrist 3.4 3.6 Elbow Wrist 5.0 29.0 58 Elbow 8.4 3.2 Left Peroneal Motor (Vastus Med) Ankle 5.3 1.4 Popit Ankle 6.7 38.0 57 Popit 12.0 0.2 Left Tibial Motor (Abd Alvarez Brev) Ankle 5.2 2.4 Knee Ankle 9.3 43.0 46 Knee 14.5 2.4 Left Ulnar Motor (Abd Dig Minimi) Wrist 2.8 2.7 A Elbow Wrist 6.6 28.0 42 A Elbow 9.4 1.7 B Elbow Wrist 4.7 21.0 45 B Elbow 7.5 1.2 F Wave Studies NR F-Lat (ms) L-R F-Lat (ms) Left Median (Mrkrs) (Abd Poll Brev) 28.01 Left Peroneal (Mrkrs) (EDB) DISPERSED RESPONSE NR Left Tibial (Mrkrs) (Abd Hallucis) 59.18 Left Ulnar (Mrkrs) (Abd Dig Min) 28.84 EMG Side Muscle Nerve Root Ins Act Fibs Amp Dur Recrt Comment Left 1stDorInt Ulnar C8-T1 Nml Nml Nml Nml Nml Left Ext Indicis Radial (Post Int) C7-8 Nml Nml Nml Nml Nml Left Ext Digitorum Radial (Post Int) C7-8 Nml Nml Nml Nml Nml Left BrachioRad Radial C5-6 Nml Nml Nml Nml Nml Left PronatorTeres Median C6-7 Nml Nml Nml Nml Nml Left Abd Poll Brev Median C8-T1 Nml Nml Nml Nml Nml Left AntTibialis Dp Br Fibular L4-5 Nml Nml Nml Nml Nml Left Gastroc Tibial S1-2 Nml Nml Nml Nml Nml Left Fibularis Long Sup Br Fibular L5-S1 Nml Nml Nml Nml Nml Left Flex Dig Long Tibial L5-S2 Nml Nml Nml Nml Nml Left Ext Dig Brev Dp Br Fibular L5, S1 Nml Nml Nml Nml Nml Left ABD Dig Min Ulnar C8-T1 Nml Nml Nml Nml Nml MTDD
== END 2022-04-17 09:10 | disposition home or self-care (01) ==
PROVIDERS: PCP Physician Assistant; Visit Provider Student in an Organized Health Care Education/Training Program
DX: R53.1 Weakness (principal); G56.22 Lesion of ulnar nerve, left upper limb
CPT/HCPCS: 95886; 95911

== ENCOUNTER 2022-04-21 09:50 | Outpatient (CLI) | payer OTHER, MEDICARE, MEDICAID, SELFPAY ==
[2022-04-21 10:39] LABS: Basophils Absolute Auto 0.1 K/mm3 (0.0-0.1); Basophils Percent Auto 0.5 % (0.2-1.2); Eosinophils Absolute Auto 0.5 K/mm3 (0-0.3); Eosinophils Percent Auto 4.7 % (0-4.4); Hematocrit 38.2 % (42.0-52.0); Immature Granulocyte Absolute 0.07 K/mm3 (0.00-0.031); Immature Granulocyte Percent A 0.7 % (0-0.5); Lymphocytes Absolute Auto 1.19 K/mm3 (0.9-3.2); Lymphocytes Percent Auto 11.6 % (18.3-44.2); Mean Corpuscular Hemoglobin 34.2 pg (26-34); Mean Corpuscular Volume 100.5 fl (80-100); Mean Platelet Volume 9.1 fl (7.4-10.4); Monocytes Absolute Auto 0.6 K/mm3 (0.1-0.6); Monocytes Percent Auto 5.9 % (2.6-8.5); Neutrophils Absolute Auto 7.9 K/mm3 (1.3-6.7); Neutrophils Percent Auto 76.6 % (45.5-73.1); Platelet Count Result 296 k/mm3 (150-375); Red Cell Distribution Width 11.9 % (11.5-14.5); White Blood Count 10.3 K/mm3 (4.5-10.0)
[2022-04-21 11:02] LABS: Alanine Aminotransferase 28 U/L (6-50); Albumin Level 4.4 g/dL (3.5-5.1); Alkaline Phosphatase 76 U/L (38-126); Anion Gap 12 mmol/L (8-16); Aspartate Amino Transferase 25 U/L (17-59); Bilirubin,Total 0.4 mg/dL (0.2-1.3); Blood Urea Nitrogen 10 mg/dL (9-20); Calcium 9.2 mg/dL (8.4-10.2); Carbon Dioxide 24 mmol/L (22-30); Chloride 99 mmol/L (98-107); Estimated Glomerular Filt Rate > 60; Glucose 98 mg/dL (65-110); Potassium 4.7 mmol/L (3.4-5.0); Sodium 135 mmol/L (137-145)
[2022-04-21 11:09] LABS: Hemoglobin A1C 5.5 % (<5.7)
[2022-04-24 19:58] LABS: Homocysteine 11.6 umol/L (<11.4)
[2022-04-25 00:33] LABS: Zinc 55 mcg/dL (60-130)
[2022-04-25 10:23] LABS: Methylmalonic Acid 112 nmol/L (87-318)
[2022-04-26 18:03] LABS: Red Blood Cell Folate >1000 ng/mL RBC (>280)
[2022-04-28 15:45] LABS: Vitamin B6 25.5 ng/mL (2.1-21.7)
[2022-04-29 10:45] LABS: Vitamin B1 42 nmol/L (8-30)
== END 2022-04-21 09:51 | disposition home or self-care (01) ==
LOC: ANHLAB 09:59
PROVIDERS: PCP Physician Assistant; Visit Provider Student in an Organized Health Care Education/Training Program
DX: R53.1 Weakness (principal)
CPT/HCPCS: 36415; 80053; 82525; 82607; 82747; 83036; 83090; 83921; 84207; 84425; 84443; 84630; 85025; 86038

== ENCOUNTER 2022-06-07 08:31 | Outpatient (CLI) | payer MEDICARE, OTHER, MEDICAID, SELFPAY ==
[2022-06-07 09:05] LABS: Anion Gap 6 mmol/L (8-16); Blood Urea Nitrogen 14 mg/dL (9-20); Calcium 8.5 mg/dL (8.4-10.2); Carbon Dioxide 26 mmol/L (22-30); Chloride 99 mmol/L (98-107); Estimated Glomerular Filt Rate > 60; Glucose 108 mg/dL (65-110); Potassium 4.3 mmol/L (3.4-5.0); Sodium 131 mmol/L (137-145)
--- NOTE | 2022-06-07 11:00 | NEURO_ITS ---
Impression: # History of left sided weakness; this study of right upper and lower extremity was ordered to compare to the left side. # Evidence of right ulnar neuropathy. # Normal nerve conduction study of right lower extremity. # Reduced recruitment noted in right flexor digitorum longus and right fibularis longus; This could be seen in the setting of right lower lumbosacral radiculopathy. Please note, paraspinal muscles were not tested. # Clinical correlation recommended. Motor Nerve Conduction Upper Extremities Median Nerve Conduction Velocity (m/sec) Terminal Latency (msec) Response Voltage(mV) Elbow-Wrist Wrist Elbow Wrist Right 51 4.1 4 5 Left Ulnar Nerve Conduction Velocity (m/sec) Terminal Latency (msec) Response Voltage(mV) Above Elbow Below Elbow Wrist Above Elbow Below Elbow Wrist Right 46 52 2.5 8 8 9 Left F-Wave Latency Median (ms) Ulnar (ms) Right 28.9 29.7 Left Sensory Nerve Conduction Upper Extremities Median Nerve Stimulation Terminal Latency (msec) Wrist/Digit Response Voltage (uV) Wrist Right 3.3/3.5 27/33 Left Ulnar Nerve Stimulation Terminal Latency (msec) Wrist/Digit Response Voltage (uV) Wrist Right 2.8 13 Left Radial Nerve Terminal Latency (msec) Response Voltage(mV) Right 2.3 26 Left Left Right Muscles Examined Fibrillation Fasciculation Scarcity Voltage Duration Left Right Left Right Left Right Left Right Left Right Deltoid Biceps X Brachioradialis Triceps X Pronator Teres X Ext Indicis X Ext Digitorum X Abd Poll Brev X 1st Dorsal Interosseus Paraspinals Motor Nerve Conduction Lower Extremities Peroneal Nerve Conduction Velocity (m/sec) Terminal Latency (msec) Response Voltage(mV) Popliteal space-Ankle Ankle Extensor Dig Brevis Popliteal space Ankle Right 52-47 5.2 3-4 4 Left Tibial Nerve Conduction Velocity (m/sec) Terminal Latency (msec) Response Voltage(mV) Popliteal space-Ankle Ankle-Extensor Dig Brevis Popliteal space Ankle Right 51 4.9 5 4 Left F-waves Peroneal Nerve (ms) Tibial Nerve (ms) Right 59.1 58.6 Left Sensory Nerve Conduction Lower Extremities Sural Nerve Stimulation Terminal Latency (msec) Ankle Response Voltage (uV) Ankle Response Velocity (m/sec) Right 4.2 8 43 Left Superficial Peroneal Nerve Stimulation Terminal Latency (msec) Ankle Response Voltage (uV) Ankle Response Velocity (m/sec) Right 4.0 15 45 Left Left Right Muscles Examined Fibrillation Fasciculation Recruitment Voltage Duration Left Right Left Right Left Right Left Right Left Right X Ant Tibialis X Gastroc X Fibularis Long Reduced X Flex Dig Long Reduced X Ext Dig Brev Abd Hallucis Quadriceps Paraspinals MTDD
== END 2022-06-07 08:32 | disposition home or self-care (01) ==
PROVIDERS: PCP Physician Assistant; Referring Provider Internal Medicine Cardiovascular Disease; Visit Provider Student in an Organized Health Care Education/Training Program
DX: I50.30 Unspecified diastolic (congestive) heart failure (principal); G56.21 Lesion of ulnar nerve, right upper limb
CPT/HCPCS: 36415; 80048; 95886; 95911

== ENCOUNTER 2022-08-16 07:11 | Outpatient (CLI) | payer MEDICARE, OTHER, MEDICAID, SELFPAY ==
[2022-08-16 08:02] LABS: Basophils Absolute Auto 0.1 K/mm3 (0.0-0.1); Basophils Percent Auto 0.5 % (0.2-1.2); Eosinophils Absolute Auto 0.3 K/mm3 (0-0.3); Eosinophils Percent Auto 3.2 % (0-4.4); Hematocrit 40.1 % (42.0-52.0); Hemoglobin 13.4 g/dL (14.0-18.0); Immature Granulocyte Absolute 0.09 K/mm3 (0.00-0.031); Immature Granulocyte Percent A 0.9 % (0-0.5); Lymphocytes Absolute Auto 1.44 K/mm3 (0.9-3.2); Lymphocytes Percent Auto 14.9 % (18.3-44.2); Mean Corpuscular HGB Conc 33.4 g/dl (32-36); Mean Corpuscular Hemoglobin 33.4 pg (26-34); Mean Platelet Volume 9.4 fl (7.4-10.4); Monocytes Absolute Auto 0.7 K/mm3 (0.1-0.6); Monocytes Percent Auto 7.6 % (2.6-8.5); Neutrophils Percent Auto 72.9 % (45.5-73.1); Platelet Count Result 292 k/mm3 (150-375); Red Blood Count 4.01 M/mm3 (4.6-6.20); Red Cell Distribution Width 12.3 % (11.5-14.5); White Blood Count 9.7 K/mm3 (4.5-10.0)
[2022-08-16 09:04] LABS: Alanine Aminotransferase 34 U/L (6-50); Albumin Level 4.6 g/dL (3.5-5.1); Alkaline Phosphatase 80 U/L (38-126); Anion Gap 8 mmol/L (8-16); Aspartate Amino Transferase 29 U/L (17-59); Bilirubin,Total 0.7 mg/dL (0.2-1.3); Blood Urea Nitrogen 15 mg/dL (9-20); Calcium 8.7 mg/dL (8.4-10.2); Carbon Dioxide 24 mmol/L (22-30); Chloride 98 mmol/L (98-107); Cholesterol 143 mg/dL (0-200); Estimated Glomerular Filt Rate 57; Glucose 118 mg/dL (65-110); HDL Direct 44 mg/dL; Potassium 4.9 mmol/L (3.4-5.0); Sodium 130 mmol/L (137-145); Triglycerides 142 mg/dL (<150)
[2022-08-16 09:14] LABS: LDL Cholesterol Direct 63 mg/dL
[2022-08-16 09:32] LABS: Hemoglobin A1C 5.6 % (<5.7)
[2022-08-16 09:49] LABS: Vitamin D 25 Hydroxy 50.3 ng/mL
[2022-08-16 19:04] LABS: Creatinine Urine 53.5 mg/dL
[2022-08-16 19:21] LABS: MALB Creatinine Ratio < 11.2 mg/g (0-30); Microalbumin Urine Random < 6.0 mg/L (0-16.7)
== END 2022-08-16 07:12 | disposition home or self-care (01) ==
PROVIDERS: PCP Physician Assistant
DX: E66.01 Morbid (severe) obesity due to excess calories (principal); Z68.43 Body mass index [BMI] 50.0-59.9, adult
CPT/HCPCS: 36415; 80053; 80061; 82043; 82306; 82607; 83036; 84443; 85025

== ENCOUNTER → 2023-02-12 13:25 | Outpatient (CLI) | payer MEDICARE, OTHER, MEDICAID, SELFPAY ==
--- NOTE | ~2023-02-12 | XR_ITS ---
EXAM: XR knee LT 3V DATE: 02/12/2023 13:58 HISTORY: PAIN IN LEFT KNEE . COMPARISON: None available. FINDINGS: Normal mineralization. No fracture or dislocation. No lytic or blastic lesion. Mild medial joint space narrowing and osteophytosis. Mild patellofemoral compartment osteophytosis. No erosion o r periosteal change. Soft tissues within normal limits. IMPRESSION: Mild left knee osteoarthritis. Reviewed, dictated and finalized at location K.
== END ==
PROVIDERS: PCP Physician Assistant; Visit Provider Physician Assistant
DX: M25.562 Pain in left knee (principal); M17.12 Unilateral primary osteoarthritis, left knee
CPT/HCPCS: 73562

== ENCOUNTER → 2023-07-04 08:38 | Outpatient (CLI) | payer MEDICARE, OTHER, MEDICAID, SELFPAY ==
--- NOTE | ~2023-07-04 | MR_ITS ---
MRI of the lumbar spine Clinical History: Radiculopathy Technique: Axial T2-weighted images, and sagittal T1-weighted, T2-weighted, and T2 fat-sat images wer e acquired. Findings: Moderate chronic compression fracture of L1 present, with associated loss of height no lane ow edema. No other fracture or sublocation seen. No bone marrow signal abnormality seen. At L1-L2, there is minimal disc bulge and mild facet arthropathy. No central canal stenosis or neural foraminal narrowing. At L2-L3, there is no significant disc bulge or herniation. There is no central canal stenosis or shaila ral foraminal narrowing. L3-L4, there is no significant disc bulge or herniation. There is mild facet arthropathy. No central canal stenosis or neural foraminal narrowing. At L4-L5, there is minimal disc bulge. No central canal stenosis or definite neural foraminal narrowi ng. At L5-S1, there is mild central disc protrusion. No central canal stenosis. There is mild bilateral n eural foraminal narrowing. Paravertebral soft tissues are unremarkable. Impression: Moderate, chronic compression fracture of L1. Mild degenerative spondylosis, as above. Reviewed, dictated and finalized at [facility]. H [employer]ATOR Impression: Moderate, chronic compression fracture of L1. Mild degenerative spondylosis, as above.
--- NOTE | ~2023-07-04 | XR_ITS ---
XR shoulder LT min 2V DATE: 07/04/2023 09:27 INDICATION: Left shoulder pain TECHNIQUE: 4 views COMPARISON: None FINDINGS: No fracture or dislocation, periosteal reaction or bone destruction or abnormal soft tissue calcification. Normal alignment at the acromioclavicular and glenohumeral joints. IMPRESSION: Negative Reviewed, dictated and finalized at location L. [employer]SS[employer] MUSIC IMPRESSION: Negative
== END ==
PROVIDERS: PCP Nurse Practitioner Family; Visit Provider Nurse Practitioner Family
DX: M43.06 Spondylolysis, lumbar region (principal); S32.010A Wedge compression fracture of first lumbar vertebra, initial encounter for closed fracture; X58.XXXA Exposure to other specified factors, initial encounter
CPT/HCPCS: 72148; 73030